=== PATIENT | male | born 1945 | race Caucasian/White ===

== ENCOUNTER 2017-01-31 16:34 | Inpatient (IN) | payer OTHER ==
[~2017-01-31 16:34] MED LIST: DUONEB 0.5 MG/3 MG NEB ONE
[2017-01-31 16:41] VITALS: BMI 31.6
[2017-01-31] MEDS ORDERED: TUSSIONEX PENNKINETIC SUSP PO PRN (16:56)
[2017-01-31] MEDS ORDERED: NS 1000 ML 1,000 ML IV ONE (16:58)
[2017-01-31] MEDS ORDERED: NS 1000 ML 1,000 ML ONE (17:00)
[2017-01-31] MEDS ORDERED: TYLENOL 325 MG TAB PO ONE (17:14)
--- NOTE | 2017-01-31 17:16 | DR.URIAD ---
HPI - Time Seen Time seen: 17:15 - PCP Primary Care Physician: KRIS LOPEZ - Complaint Chief Complaint:: PT C/O FLU LIKE SYMPTOMS , AND WEAK AND NO COUGH AND PT IS WEAK .. PT HAS AN INCREASED TEMP OFF AND ON AT HOME .. - Source History Provided: Patient - Mode of Arrival Mode of Arrival: Wheelchair - Timing Onset of Chief Complaint: 01/22/17 PMH - PMH Past Medical History: Yes Past Medical History: Hypertension Past Medical History Comment: AFIB, HX OF BRAIN BLEED. Past Surgical History: Yes Surgical History: Angioplasty/Stents - Family History History of Family Medical Conditions: Yes Family Medical History: Diabetes Mellitus, Cancer, Hypertension - Social History Does patient currently use any type of tobacco product: No Have you used tobacco products in the last 12 months: No Type of Tobacco Use: None Does any household member use tobacco: No Alcohol Use: None Do you use any recreational Drugs:: No Lives With: Family Lives Where: Home - infectious screening In the last 2 months have you had wt loss of >10#?: NO Have you had fever, night sweats or hemotysis?: No Have you traveled outside the country in the last 6 months?: No Isolation: Standard ROS - Review of Systems Eyes: No Symptoms Reported ENTM: No Symptoms Reported Respiratoy: No Symptoms Reported Cardiovascular: No Symptoms Reported Gastrointestinal/Abdominal: No Symptoms Reported Genitourinary: No Symptoms Reported Neurological: No Symptoms Reported Musculoskeletal: No Symptoms Reported Integumentary: No Symptoms Reported Hematologic/Lymphatic: No Symptoms Reported Endocrine: No Symptoms Reported Psychiatric: No Symptoms Reported All Other Systems: Reviewed and Negative PE - Vital Signs Vitals: Temperature 101.5 F Pulse Rate [Left Brachial] 93 Pulse Rate 96 Respiratory Rate 20 Blood Pressure [Left Arm] 156/74 Blood Pressure [Right Arm] 154/77 Blood Pressure 143/73 O2 Sat by Pulse Oximetry 98 - General General Appearance: Alert, In No Apparent Distress - Head Head Exam: Normal Inspection, Atraumatic - Eyes Eye exam: Normal Appearance, PERRL, EOMI - ENT ENT Exam: Normal Exam External Ear Exam: Normal External Inspection TM/Canal Exam: Bilateral Normal Nose Exam: Normal Nose Exam Nasal Speculum Exam: Bilateral Normal Mouth Exam: Normal Inspection Throat Exam: Normal Inspection - Neck Neck Exam: Normal Inspection, Full ROM - Chest Chest Inspection: Normal Inspection, Symmetric Chest Wall Rise - Respiratory Respiratory Exam: Normal Lung Sounds Bilat Respiratory Exam: Bilateral Clear to Auscultation - Cardiovascular Cardiovascular Exam: Regular Rate, Normal Rhythm - Abdominal Exam Abdominal Exam: Normal Inspection Abdominal Tenderness: negative: RUQ, RLQ, LUQ, LLQ, Epigastrium, Suprapubic, Diffuse, Mild, Moderate, Severe, Other - Extremeties Extremities Exam: Normal Inspection, Full ROM - Back Back Exam: Normal Inspection, Tenderness - Neurologic Neurological Exam: Alert, Oriented X3, CN II-XII Intact - Psychiatric Psychiatric Exam: Normal Affect - Skin Skin Exam: Warm, Dry, Intact ROR - Labs Reviewed Laboratory Results Reviewed?: Yes (UA: nitrite +,leukocyte esterase 3+,wbc 55-60 ) Result Diagrams: 01/31/17 17:05 01/31/17 17:05 Laboratory: 01/31/17 18:13 Sputum - Expectorated Sputum - Final WBC 12.9 X10^3/uL (3.6-10.0) H 01/31/17 17:05 RBC 4.30 X10^6/uL (4.7-6.0) L 01/31/17 17:05 Hgb 12.7 g/dL (13.5-18.0) L 01/31/17 17:05 Hct 37.2 % (42.0-54.0) L 01/31/17 17:05 MCV 86.6 fL (80.0-100.0) 01/31/17 17:05 MCH 29.5 pg (27.0-34.0) 01/31/17 17:05 MCHC 34.0 g/dL (33.0-35.0) 01/31/17 17:05 RDW 14.1 % (11.6-16.5) 01/31/17 17:05 Plt Count 74 X10^3/uL (150.0-450.0) L 01/31/17 17:05 Plt Count Comment Adequate (ADEQUATE) 01/31/17 17:05 MPV 9.6 fL (7.4-11.0) 01/31/17 17:05 Neut % 75.7 % (42.0-75.0) H 01/31/17 17:05 Lymph % 10.1 % (21.0-51.0) L 01/31/17 17:05 [place] % 13.8 % (0.0-13.0) H 01/31/17 17:05 Eos % 0.0 % (0.9-2.9) L 01/31/17 17:05 Baso % 0.4 % (0.2-1.0) 01/31/17 17:05 Neut # 9.7 x10^3/uL (2.2-4.8) H 01/31/17 17:05 Lymph # 1.3 X10^3/uL (1.3-2.9) 01/31/17 17:05 [place] # 1.8 x10^3/uL (0.3-0.8) H 01/31/17 17:05 Eos # 0.0 x10^3/uL (0.0-0.2) 01/31/17 17:05 Baso # 0.1 X10^3/uL (0.0-0.1) 01/31/17 17:05 Absolute Nucleated RBC 0.0 /100WBC 01/31/17 17:05 Plt Clumps, EDTA Few 01/31/17 17:05 Plt Morphology Comment Normal (NORMAL) 01/31/17 17:05 RBC Morphology Normal (NORMAL) 01/31/17 17:05 Hypochromasia Slight A 01/31/17 17:05 Sodium 137 mmol/L (136-145) 01/31/17 17:05 Corrected Sodium 139 mmol/L (136-145) 01/31/17 17:05 Potassium 3.5 mmol/L (3.5-5.1) 01/31/17 17:05 Chloride 103 mmol/L (98-107) 01/31/17 17:05 Carbon Dioxide 24.2 mmol/L (21-32) 01/31/17 17:05 BUN 29 mg/dL (7-18) H 01/31/17 17:05 Creatinine 1.62 mg/dL (0.70-1.30) H 01/31/17 17:05 Est GFR (MDRD) Af Amer 55 (>60) L 01/31/17 17:05 Est GFR (MDRD) Non-Af 45 (>60) L 01/31/17 17:05 Glucose 166 mg/dL (65-99) H 01/31/17 17:05 Calcium 8.6 mg/dL (8.5-10.1) 01/31/17 17:05 Corrected Calcium 9.8 mg/dL (8.5-10.1) 01/31/17 17:05 Total Bilirubin 0.90 mg/dL (0.2-1.0) 01/31/17 17:05 AST 30 Units/L (15-37) 01/31/17 17:05 ALT 19 Units/L (12-78) 01/31/17 17:05 Alkaline Phosphatase 64 Units/L (46-116) 01/31/17 17:05 Total Protein 7.5 g/dL (6.4-8.2) 01/31/17 17:05 Albumin 2.5 g/dL (3.4-5.0) L 01/31/17 17:05 Globulin 5.0 g/dL (2.5-4.5) H 01/31/17 17:05 Albumin/Globulin Ratio 0.5 Ratio (1.1-2.1) L 01/31/17 17:05 Specimen Type Clean catch urine 01/31/17 18:09 Urine Color Dark yellow (YELLOW) 01/31/17 18:09 Urine Appearance Slightly hazy (CLEAR) 01/31/17 18:09 Urine pH 5.0 (5.0 - 8.0) 01/31/17 18:09 Ur Specific [place] 1.015 (1.000-1.030) 01/31/17 18:09 Urine Protein 3+ (NEGATIVE) 01/31/17 18:09 Urine Glucose (UA) Negative (NEGATIVE) 01/31/17 18:09 Urine Ketones Negative (NEGATIVE) 01/31/17 18:09 Urine Occult Blood 4+ (NEGATIVE) 01/31/17 18:09 Urine Nitrite Positive (NEGATIVE) 01/31/17 18:09 Urine Bilirubin Negative (NEGATIVE) 01/31/17 18:09 Urine Urobilinogen Normal (NORMAL) 01/31/17 18:09 Ur Leukocyte Esterase 3+ (NEGATIVE) 01/31/17 18:09 Urine RBC 3-5 /HPF (NEGATIVE) 01/31/17 18:09 Urine WBC 55-60 /HPF (NEGATIVE) 01/31/17 18:09 Ur Squamous Epith Cells Rare /HPF (NEGATIVE) 01/31/17 18:09 Urine Bacteria 3+ /HPF (NEGATIVE) 01/31/17 18:09 Ur Culture Indicated? Yes/culture set up 01/31/17 18:09 Influenza Type A (PCR) Negative (NEGATIVE) 01/31/17 17:53 Influenza Type B (PCR) Negative (NEGATIVE) 01/31/17 17:53 - XRAY XRAY Interpreted by: Radiologist (Chest: Stable cardiomegaly; basilar intersitiial prominence may reflect crowding related to decreased depth of inspiration, although mild edema or atypical infection are not excluded. Addendum: Repeat AP view of the chest was performed, demonstrating unchanged cardiomegaly,decreased depth of inspiration and interstitial prominence at the bases. Overall, the examination is stable, with differential of mild edema or atypical infection are not excluded.) - Diagnosis Discharge Problem: Pyelonephritis - Discharge Plan Condition: Stable - Follow ups/Referrals Follow ups/Referrals: NFD,None [Primary Care Provider] - 3 days - Instructions
[2017-01-31 17:17] LABS: HEMOGLOBIN 12.7 g/dL (13.5-18.0); MONOCYTES # (AUTO) 1.8 x10^3/uL (0.3-0.8); RED CELL DISTRIBUTION WIDTH 14.1 % (11.6-16.5)
[2017-01-31] MEDS ORDERED: TYLENOL 500 MG TAB EXTRA STRENGTH PO ONE ×2 (17:20→17:26)
--- NOTE | 2017-01-31 17:31 | RAD ---
Chest, one view Indication: Flu-like symptoms. Weakness. Comparison: 01/20/2016 Findings: Mild cardiac silhouette enlargement is unchanged. There is decreased depth of inspiration w ith interstitial thickening most prominent at the bases. No dense infiltrate or large effusion is chandan ntified. Impression: Stable cardiomegaly. Basilar interstitial prominence may reflect crowding related to decreased depth of inspiration, altho ugh mild edema or atypical infection are not excluded. Correlation recommended. Reported By:
[2017-01-31] MEDS ORDERED: LASIX PO PRN (17:33)
[2017-01-31 17:36] LABS: BASOPHILS # (AUTO) 0.1 X10^3/uL (0.0-0.1); BASOPHILS % (AUTO) 0.4 % (0.2-1.0); HEMATOCRIT 37.2 % (42.0-54.0); LYMPHOCYTES # (AUTO) 1.3 X10^3/uL (1.3-2.9); LYMPHOCYTES % (AUTO) 10.1 % (21.0-51.0); MEAN CORPUSCULAR HEMOGLOBIN 29.5 pg (27.0-34.0); MEAN CORPUSCULAR VOLUME 86.6 fL (80.0-100.0); MEAN PLATELET VOLUME 9.6 fL (7.4-11.0); MONOCYTES % (AUTO) 13.8 % (0.0-13.0); NEUTROPHILS # (AUTO) 9.7 x10^3/uL (2.2-4.8); NEUTROPHILS % (AUTO) 75.7 % (42.0-75.0); PLATELET COUNT 74 X10^3/uL (150.0-450.0); WHITE BLOOD COUNT 12.9 X10^3/uL (3.6-10.0)
[2017-01-31 17:38] LABS: PLATELET MORPHOLOGY COMMENT NORMAL (NORMAL)
[2017-01-31 17:39] LABS: HYPOCHROMASIA SLIGHT
[2017-01-31 17:40] LABS: ALBUMIN 2.5 g/dL (3.4-5.0); CALCIUM 8.6 mg/dL (8.5-10.1); CARBON DIOXIDE 24.2 mmol/L (21-32); COR CA(FOR HYPOALB) 9.8 mg/dL (8.5-10.1); CREATININE 1.62 mg/dL (0.70-1.30); TOTAL PROTEIN 7.5 g/dL (6.4-8.2)
[2017-01-31] MEDS ORDERED: DUONEB 0.5 MG/3 MG ONE (18:05)
[2017-01-31 18:19] LABS: BILIRUBIN,URINE NEGATIVE (NEGATIVE); BLOOD/HEMOGLOBIN,URINE 4+ (NEGATIVE); GLUCOSE, URINE NEGATIVE (NEGATIVE); KETONES,URINE NEGATIVE (NEGATIVE); LEUKOCYTE ESTERASE ,URINE 3+ (NEGATIVE); NITRITES,URINE POSITIVE (NEGATIVE); PROTEIN,URINE 3+ (NEGATIVE); UROBILINOGEN,URINE NORMAL (NORMAL)
[2017-01-31 18:31] LABS: APPEARANCE,URINE SLIGHTLY HAZY (CLEAR); COLOR,URINE DARK YELLOW (YELLOW)
[2017-01-31 18:32] LABS: BACTERIA,URINE 3+ /HPF (NEGATIVE); SQUAMOUS EPITHELIAL CELL,UR RARE /HPF (NEGATIVE)
[2017-01-31] MEDS ORDERED: CIPRO IV 400 MG PREMIX* 400 MG/200 ML IV.SOLN. IV ONE ×2 (18:56→18:57)
[2017-01-31] MEDS ORDERED: NS 1/2 1000 ML IV 1,000 ML IV ONE (18:58)
[2017-01-31] MEDS: NS 1/2 1000 ML IV 1,000 ML IV SCH (19:04)
[2017-01-31] MEDS ORDERED: PHENERGAN INJ 25 MG IV PRN (19:43)
[2017-01-31] MEDS ORDERED: PATIENT'S HOME MEDICATION (Atorvastatin Calcium [Atorvastatin Calcium] 1 TAB) PO SCH (21:00)
[2017-01-31] MEDS ORDERED: FLUVIRIN IM ONE (21:20)
[2017-01-31] MEDS: NEURONTIN CAP 100 MG PO SCH (21:35)
[2017-01-31] MEDS: COREG TAB 6.25 MG PO SCH (21:35)
[2017-01-31] MEDS: LIPITOR TAB 40 MG PO SCH (21:35)
[2017-01-31] MEDS: ROBITUSSIN DM PO SCH (21:36)
[2017-01-31] MEDS: DUONEB 0.5 MG/3 MG NEB SCH (21:54)
[2017-02-01] MEDS: DUONEB 0.5 MG/3 MG NEB SCH ×6 (00:55→20:50)
[2017-02-01 04:11] LABS: STOOL FOR WBC NEGATIVE (NEGATIVE)
[2017-02-01 04:15] LABS: CRYPTOSPORIDIUM PARVUM ANTIGEN NEGATIVE (NEGATIVE); GIARDIA LAMBLIA ANTIGEN POSITIVE (NEGATIVE)
[2017-02-01 04:50] LABS: ALANINE AMINOTRANSFERASE 25 Units/L (12-78); ALBUMIN 2.3 g/dL (3.4-5.0); ALKALINE PHOSPHATASE 61 Units/L (46-116); ASPARTATE AMINO TRANSFERASE 33 Units/L (15-37); BLOOD UREA NITROGEN 25 mg/dL (7-18); CALCIUM 8.4 mg/dL (8.5-10.1); CARBON DIOXIDE 23.2 mmol/L (21-32); CHLORIDE 104 mmol/L (98-107); COR CA(FOR HYPOALB) 9.8 mg/dL (8.5-10.1); COR NA(FOR HYPERGLY) 139 mmol/L (136-145); CREATININE 1.45 mg/dL (0.70-1.30); SODIUM 138 mmol/L (136-145); TOTAL PROTEIN 6.9 g/dL (6.4-8.2); eGFR BLACK RACES > 60 (>60); eGFR NON BLACK RACES 51 (>60)
[2017-02-01 04:53] LABS: BASOPHILS % (AUTO) 0.1 % (0.2-1.0); EOSINOPHILS % (AUTO) 0.2 % (0.9-2.9); HEMATOCRIT 36.1 % (42.0-54.0); HEMOGLOBIN 12.5 g/dL (13.5-18.0); LYMPHOCYTES # (AUTO) 0.8 X10^3/uL (1.3-2.9); LYMPHOCYTES % (AUTO) 9.1 % (21.0-51.0); MEAN CORPUSCULAR HEMOGLOBIN 29.7 pg (27.0-34.0); MEAN CORPUSCULAR HGB CONC 34.5 g/dL (33.0-35.0); MEAN CORPUSCULAR VOLUME 86.3 fL (80.0-100.0); MEAN PLATELET VOLUME 9.3 fL (7.4-11.0); MONOCYTES # (AUTO) 1.3 x10^3/uL (0.3-0.8); NEUTROPHILS # (AUTO) 6.7 x10^3/uL (2.2-4.8); NEUTROPHILS % (AUTO) 75.6 % (42.0-75.0); PLATELET COUNT 73 X10^3/uL (150.0-450.0); RED BLOOD COUNT 4.19 X10^6/uL (4.7-6.0); RED CELL DISTRIBUTION WIDTH 14.1 % (11.6-16.5)
[2017-02-01] MEDS ORDERED: MAGNESIUM SULFATE 1 GM/100 mL PREMIX 1 GM/100 ML BAG IV PRN (05:06)
[2017-02-01] MEDS ORDERED: K-RIDER 10 MEQ/NS 100 ML 10 MEQ/100 ML BAG IV PRN (05:06)
[2017-02-01] MEDS ORDERED: POTASSIUM CHL 60 MEQ/NS 0.45% 500 ML IV PRN (05:06)
[2017-02-01] MEDS ORDERED: K-LYTE EFFERVESCENT PO PRN (05:06)
[2017-02-01] MEDS ORDERED: MAG-OX TAB PO PRN (05:06)
[2017-02-01] MEDS ORDERED: POTASSIUM CHL 40 MEQ/NS 0.45% 500 ML IV PRN (05:06)
[2017-02-01] MEDS ORDERED: POTASSIUM CHLORIDE LIQ 20 MEQ UDC PO PRN (05:06)
[2017-02-01 05:16] LABS: PLATELET MORPHOLOGY COMMENT NORMAL (NORMAL); WHITE BLOOD COUNT 8.9 X10^3/uL (3.6-10.0)
[2017-02-01] MEDS ORDERED: K-LYTE EFFERVESCENT PO ONE (06:00)
[2017-02-01] MEDS ORDERED: FLUVIRIN IM ONE (06:41)
[2017-02-01] MEDS: NORCO 5/325 MG TAB PO PRN ×2 (07:08→21:06)
[2017-02-01] MEDS: NEURONTIN CAP 100 MG PO SCH ×3 (07:08→21:06)
[2017-02-01] MEDS ORDERED: NS 1/2 1000 ML IV 1,000 ML IV ONE (07:54)
[2017-02-01] MEDS: ROBITUSSIN DM PO SCH ×5 (07:59→21:08)
[2017-02-01] MEDS: NS 1/2 1000 ML IV 1,000 ML IV SCH (08:00)
[2017-02-01] MEDS: DIOVAN TAB 160 MG PO SCH (08:47)
[2017-02-01] MEDS: LASIX PO SCH (08:47)
[2017-02-01] MEDS: HYDROCHLOROTHIAZIDE 25 MG TAB PO SCH ×2 (08:48→08:50)
[2017-02-01] MEDS: COREG TAB 6.25 MG PO SCH ×2 (08:48→21:06)
[2017-02-01] MEDS: FLOMAX PO SCH (08:48)
[2017-02-01] MEDS ORDERED: VALSARTAN PO SCH (09:00)
[2017-02-01] MEDS: CIPRO IV 400 MG PREMIX* 400 MG/200 ML IV.SOLN. IV SCH ×2 (10:37→21:08)
--- NOTE | 2017-02-01 13:02 | CT ---
CT OF THE ABDOMEN AND PELVIS WITH CONTRAST HISTORY: Pyelonephritis Comparison: 01/18/2016 Technique: Multiple axial images of the abdomen and pelvis were obtained from the lung bases to the pubic symphy sis follow the administration of IV contrast as well as oral contrast. Dose reduction techniques inc luding Automated Exposure Control (AEC) and adjustment of mA and kV were utlized. Findings: The heart is normal in size. There is no pericardial effusion. Lung bases are clear without focal con solidation, pleural effusion or pneumothorax. Liver and spleen are normal in size, enhancement characteristics and contour. No focal lesions. The p ortal vein is patent. No ductal dilitation. Gallbladder is present. No calcified gallstones or gallbl adder wall thickening. The pancreas is unremarkable. Adrenal glands are normal. Redemonstrated is a m ulti-cystic and poorly defined cystic mass in the right kidney measuring 8.5 x 7.1 x 9.5 cm, previous ly 7.4 x 6.6 x 8.3 cm. There is inflammatory change surrounding the right kidney and involving the p erinephric fascia. Stranding extends along the course of the right ureter to the level of the pelvic inlet. No evidence of ureteral obstruction. It should be noted the cystic structures cannot be defini tively connected to the right renal collecting system. There is also mild prominence involving the le ft-sided collecting system best seen on series 4 between images 36 and 42 No bowel obstruction or inflammation. Normal appendix. Diverticulosis with diverticulitis. Bambi mese nteric appearance is present and similar to prior. No free fluid or fluid collections. The bladder is normal in appearance. Prostate enlarged. Bilateral fat containing inguinal hernias. No free fluid or abnormal pelvic lymph nodes. No aggressive osseous lesions. IMPRESSION: 1. Similar appearance of multilocular cystic lesion involving the upper pole of the right kidney wit h thick enhancing septa. As this cannot be completely and definitively connected to the collecting sy stem, the differential considerations include chronic renal abscess, obstructed upper pole calyx with superinfection or possibly cystic renal neoplasm. The latter is disfavored given its stable to decre ased size since 01/18/2016 . Overall these findings are essentially unchanged from prior. 2. Prominence of the proximal left collecting system which may also represent infection in the correc t clinical setting. No obstructing mass or lesion can be seen on this examination. Reported By:
[2017-02-01] MEDS: FLAGYL IV PREMIX 500 MG BAG 500 MG/100 ML BAG IV SCH ×2 (13:59→21:08)
[2017-02-01] MEDS: TYLENOL 325 MG TAB PO PRN (15:22)
[2017-02-01] MEDS: NS 1/2 + KCL 20 MEQ/L 1,000 ML IV SCH (15:23)
--- NOTE | 2017-02-01 19:03 | DR.UPDATE ---
H&P Update History and Physical Update: History and Physical reviewed and patient examined. SEE SCANNED H & P, UPDATE ON 01/31/2017 Changes noted: NO
[2017-02-01] MEDS: LIPITOR TAB 40 MG PO SCH (21:06)
[2017-02-01] MEDS: MORPHINE SULFATE INJ 2 MG INJ IVP PRN (22:59)
[2017-02-02] MEDS: DUONEB 0.5 MG/3 MG NEB SCH ×6 (00:55→21:28)
[2017-02-02] MEDS: NS 1/2 + KCL 20 MEQ/L 1,000 ML IV SCH ×4 (01:08→21:03)
[2017-02-02] MEDS: FLAGYL IV PREMIX 500 MG BAG 500 MG/100 ML BAG IV SCH ×2 (03:14→08:14)
[2017-02-02] MEDS: MORPHINE SULFATE INJ 2 MG INJ IVP PRN ×3 (05:26→23:46)
[2017-02-02] MEDS: NEURONTIN CAP 100 MG PO SCH ×3 (05:26→21:03)
[2017-02-02 06:09] LABS: BASOPHILS % (AUTO) 0.1 % (0.2-1.0); EOSINOPHILS # (AUTO) 0.1 x10^3/uL (0.0-0.2); EOSINOPHILS % (AUTO) 0.8 % (0.9-2.9); HEMATOCRIT 34.4 % (42.0-54.0); HEMOGLOBIN 11.6 g/dL (13.5-18.0); LYMPHOCYTES # (AUTO) 1.2 X10^3/uL (1.3-2.9); LYMPHOCYTES % (AUTO) 13.1 % (21.0-51.0); MEAN CORPUSCULAR HEMOGLOBIN 28.9 pg (27.0-34.0); MEAN CORPUSCULAR HGB CONC 33.8 g/dL (33.0-35.0); MEAN CORPUSCULAR VOLUME 85.5 fL (80.0-100.0); MONOCYTES # (AUTO) 1.6 x10^3/uL (0.3-0.8); MONOCYTES % (AUTO) 17.7 % (0.0-13.0); NEUTROPHILS % (AUTO) 68.3 % (42.0-75.0); PLATELET COUNT 67 X10^3/uL (150.0-450.0); RED BLOOD COUNT 4.02 X10^6/uL (4.7-6.0); RED CELL DISTRIBUTION WIDTH 14.1 % (11.6-16.5); WHITE BLOOD COUNT 8.8 X10^3/uL (3.6-10.0)
[2017-02-02 06:26] LABS: ALBUMIN 2.1 g/dL (3.4-5.0); CALCIUM 8.1 mg/dL (8.5-10.1); CARBON DIOXIDE 24.2 mmol/L (21-32); COR CA(FOR HYPOALB) 9.6 mg/dL (8.5-10.1); CREATININE 1.56 mg/dL (0.70-1.30); TOTAL PROTEIN 6.7 g/dL (6.4-8.2)
[2017-02-02 07:12] LABS: PLATELET MORPHOLOGY COMMENT NORMAL (NORMAL)
[2017-02-02] MEDS: TYLENOL 325 MG TAB PO PRN ×2 (07:15→16:12)
[2017-02-02] MEDS: CIPRO IV 400 MG PREMIX* 400 MG/200 ML IV.SOLN. IV SCH ×2 (08:13→21:02)
[2017-02-02] MEDS: DIOVAN TAB 160 MG PO SCH (08:14)
[2017-02-02] MEDS: COREG TAB 6.25 MG PO SCH ×2 (08:14→21:03)
[2017-02-02] MEDS: LASIX PO SCH (08:15)
[2017-02-02] MEDS: FLOMAX PO SCH (08:15)
[2017-02-02] MEDS: HYDROCHLOROTHIAZIDE 25 MG TAB PO SCH (08:15)
[2017-02-02] MEDS: ROBITUSSIN DM PO SCH ×4 (08:16→21:02)
[2017-02-02] MEDS ORDERED: DUONEB 0.5 MG/3 MG ONE (12:48)
[2017-02-02] MEDS: FLAGYL TAB 500 MG PO SCH ×2 (14:27→21:03)
[2017-02-02] MEDS: LIPITOR TAB 40 MG PO SCH (21:02)
[2017-02-03] MEDS: DUONEB 0.5 MG/3 MG NEB SCH ×6 (01:24→21:50)
[2017-02-03] MEDS: TYLENOL 325 MG TAB PO PRN ×2 (03:50→12:00)
[2017-02-03 04:59] LABS: BASOPHILS % (AUTO) 0.4 % (0.2-1.0); EOSINOPHILS # (AUTO) 0.1 x10^3/uL (0.0-0.2); EOSINOPHILS % (AUTO) 1.6 % (0.9-2.9); HEMATOCRIT 36.3 % (42.0-54.0); HEMOGLOBIN 12.4 g/dL (13.5-18.0); LYMPHOCYTES # (AUTO) 0.9 X10^3/uL (1.3-2.9); MEAN CORPUSCULAR HEMOGLOBIN 29.5 pg (27.0-34.0); MEAN CORPUSCULAR HGB CONC 34.2 g/dL (33.0-35.0); MEAN CORPUSCULAR VOLUME 86.1 fL (80.0-100.0); MEAN PLATELET VOLUME 9.5 fL (7.4-11.0); MONOCYTES # (AUTO) 1.6 x10^3/uL (0.3-0.8); MONOCYTES % (AUTO) 19.2 % (0.0-13.0); NEUTROPHILS # (AUTO) 5.5 x10^3/uL (2.2-4.8); NEUTROPHILS % (AUTO) 67.8 % (42.0-75.0); PLATELET COUNT 50 X10^3/uL (150.0-450.0); RED BLOOD COUNT 4.21 X10^6/uL (4.7-6.0); RED CELL DISTRIBUTION WIDTH 14.6 % (11.6-16.5)
[2017-02-03 05:29] LABS: PLATELET MORPHOLOGY COMMENT NORMAL (NORMAL); WHITE BLOOD COUNT 8.1 X10^3/uL (3.6-10.0)
[2017-02-03] MEDS: FLAGYL TAB 500 MG PO SCH ×3 (05:46→22:00)
[2017-02-03] MEDS: NEURONTIN CAP 100 MG PO SCH ×3 (05:47→22:00)
[2017-02-03 06:16] LABS: ALANINE AMINOTRANSFERASE 18 Units/L (12-78); ALBUMIN 3.6 g/dL (3.4-5.0); ALKALINE PHOSPHATASE 68 Units/L (46-116); ASPARTATE AMINO TRANSFERASE 24 Units/L (15-37); BLOOD UREA NITROGEN 9 mg/dL (7-18); CALCIUM 8.3 mg/dL (8.5-10.1); CARBON DIOXIDE 20.8 mmol/L (21-32); CHLORIDE 102 mmol/L (98-107); CREATININE 0.77 mg/dL (0.70-1.30); SODIUM 138 mmol/L (136-145); TOTAL PROTEIN 6.9 g/dL (6.4-8.2); eGFR BLACK RACES > 60 (>60); eGFR NON BLACK RACES > 60 (>60)
[2017-02-03] MEDS: COREG TAB 6.25 MG PO SCH ×2 (08:06→21:58)
[2017-02-03] MEDS: CIPRO IV 400 MG PREMIX* 400 MG/200 ML IV.SOLN. IV SCH ×2 (08:06→21:58)
[2017-02-03] MEDS: FLOMAX PO SCH (08:07)
[2017-02-03] MEDS: DIOVAN TAB 160 MG PO SCH (08:07)
[2017-02-03] MEDS: LASIX PO SCH (08:07)
[2017-02-03] MEDS: HYDROCHLOROTHIAZIDE 25 MG TAB PO SCH (08:07)
[2017-02-03] MEDS: NS 1/2 + KCL 20 MEQ/L 1,000 ML IV SCH ×2 (08:08→21:59)
[2017-02-03] MEDS: ROBITUSSIN DM PO SCH ×4 (08:08→22:00)
[2017-02-03] MEDS: KEPPRA TAB 500 MG PO SCH ×2 (13:50→21:58)
[2017-02-03] MEDS: TOPROL XL PO SCH (13:50)
[2017-02-03] MEDS: NORCO 5/325 MG TAB PO PRN (14:33)
[2017-02-03] MEDS: LIPITOR TAB 40 MG PO SCH (21:59)
[2017-02-03] MEDS: MORPHINE SULFATE INJ 2 MG INJ IVP PRN (22:43)
[2017-02-04] MEDS: DUONEB 0.5 MG/3 MG NEB SCH ×6 (00:57→21:57)
[2017-02-04 05:29] LABS: BASOPHILS # (AUTO) 0.1 X10^3/uL (0.0-0.1); BASOPHILS % (AUTO) 0.6 % (0.2-1.0); EOSINOPHILS # (AUTO) 0.1 x10^3/uL (0.0-0.2); EOSINOPHILS % (AUTO) 1.7 % (0.9-2.9); HEMATOCRIT 34.2 % (42.0-54.0); HEMOGLOBIN 11.6 g/dL (13.5-18.0); LYMPHOCYTES # (AUTO) 1.3 X10^3/uL (1.3-2.9); LYMPHOCYTES % (AUTO) 15.7 % (21.0-51.0); MEAN CORPUSCULAR HEMOGLOBIN 29.1 pg (27.0-34.0); MEAN CORPUSCULAR HGB CONC 33.8 g/dL (33.0-35.0); MEAN PLATELET VOLUME 8.8 fL (7.4-11.0); MONOCYTES # (AUTO) 1.6 x10^3/uL (0.3-0.8); NEUTROPHILS # (AUTO) 5.2 x10^3/uL (2.2-4.8); PLATELET COUNT 64 X10^3/uL (150.0-450.0); RED BLOOD COUNT 3.98 X10^6/uL (4.7-6.0); RED CELL DISTRIBUTION WIDTH 14.5 % (11.6-16.5); WHITE BLOOD COUNT 8.3 X10^3/uL (3.6-10.0)
[2017-02-04 05:58] LABS: ALANINE AMINOTRANSFERASE 41 Units/L (12-78); ALKALINE PHOSPHATASE 70 Units/L (46-116); ASPARTATE AMINO TRANSFERASE 52 Units/L (15-37); BLOOD UREA NITROGEN 17 mg/dL (7-18); CARBON DIOXIDE 23.2 mmol/L (21-32); CHLORIDE 101 mmol/L (98-107); COR CA(FOR HYPOALB) 9.6 mg/dL (8.5-10.1); CREATININE 1.39 mg/dL (0.70-1.30); SODIUM 136 mmol/L (136-145); TOTAL PROTEIN 6.6 g/dL (6.4-8.2); eGFR BLACK RACES > 60 (>60); eGFR NON BLACK RACES 54 (>60)
[2017-02-04 06:52] LABS: PLATELET MORPHOLOGY COMMENT NORMAL (NORMAL)
[2017-02-04] MEDS: FLAGYL TAB 500 MG PO SCH ×3 (07:08→21:00)
[2017-02-04] MEDS: NEURONTIN CAP 100 MG PO SCH ×3 (07:09→21:00)
[2017-02-04] MEDS: NORCO 5/325 MG TAB PO PRN (08:06)
[2017-02-04] MEDS: CIPRO IV 400 MG PREMIX* 400 MG/200 ML IV.SOLN. IV SCH ×2 (09:24→21:00)
[2017-02-04] MEDS: FLOMAX PO SCH (09:25)
[2017-02-04] MEDS: LASIX PO SCH (09:25)
[2017-02-04] MEDS: DIOVAN TAB 160 MG PO SCH (09:25)
[2017-02-04] MEDS: TOPROL XL PO SCH (09:25)
[2017-02-04] MEDS: COREG TAB 6.25 MG PO SCH ×2 (09:25→21:00)
[2017-02-04] MEDS: KEPPRA TAB 500 MG PO SCH ×2 (09:25→21:00)
[2017-02-04] MEDS: HYDROCHLOROTHIAZIDE 25 MG TAB PO SCH (09:26)
[2017-02-04] MEDS: ROBITUSSIN DM PO SCH ×4 (09:26→21:00)
[2017-02-04] MEDS: NS 1/2 + KCL 20 MEQ/L 1,000 ML IV SCH (09:27)
[2017-02-04] MEDS: LIPITOR TAB 40 MG PO SCH (21:00)
[2017-02-04] MEDS ORDERED: CIPRO IV 400 MG PREMIX* 400 MG/200 ML IV.SOLN. IV ONE (21:03)
[2017-02-05] MEDS: DUONEB 0.5 MG/3 MG NEB SCH ×6 (01:15→21:00)
[2017-02-05] MEDS: FLAGYL TAB 500 MG PO SCH ×3 (05:09→21:22)
[2017-02-05] MEDS: NEURONTIN CAP 100 MG PO SCH ×3 (05:09→21:14)
[2017-02-05] MEDS: NS 1/2 + KCL 20 MEQ/L 1,000 ML IV SCH ×2 (06:03→09:47)
[2017-02-05 06:30] LABS: BASOPHILS % (AUTO) 0.3 % (0.2-1.0); EOSINOPHILS # (AUTO) 0.2 x10^3/uL (0.0-0.2); EOSINOPHILS % (AUTO) 2.9 % (0.9-2.9); HEMATOCRIT 35.6 % (42.0-54.0); HEMOGLOBIN 12.1 g/dL (13.5-18.0); LYMPHOCYTES # (AUTO) 1.5 X10^3/uL (1.3-2.9); LYMPHOCYTES % (AUTO) 18.7 % (21.0-51.0); MEAN CORPUSCULAR HEMOGLOBIN 29.3 pg (27.0-34.0); MEAN CORPUSCULAR VOLUME 86.1 fL (80.0-100.0); MEAN PLATELET VOLUME 8.5 fL (7.4-11.0); MONOCYTES # (AUTO) 1.5 x10^3/uL (0.3-0.8); MONOCYTES % (AUTO) 17.8 % (0.0-13.0); NEUTROPHILS # (AUTO) 4.9 x10^3/uL (2.2-4.8); NEUTROPHILS % (AUTO) 60.3 % (42.0-75.0); PLATELET COUNT 72 X10^3/uL (150.0-450.0); RED BLOOD COUNT 4.13 X10^6/uL (4.7-6.0); RED CELL DISTRIBUTION WIDTH 14.6 % (11.6-16.5); WHITE BLOOD COUNT 8.2 X10^3/uL (3.6-10.0)
[2017-02-05 06:51] LABS: ALANINE AMINOTRANSFERASE 45 Units/L (12-78); ALBUMIN 2.1 g/dL (3.4-5.0); ALKALINE PHOSPHATASE 66 Units/L (46-116); ASPARTATE AMINO TRANSFERASE 52 Units/L (15-37); BLOOD UREA NITROGEN 17 mg/dL (7-18); CALCIUM 8.2 mg/dL (8.5-10.1); CARBON DIOXIDE 25.7 mmol/L (21-32); CHLORIDE 102 mmol/L (98-107); COR CA(FOR HYPOALB) 9.7 mg/dL (8.5-10.1); CREATININE 1.34 mg/dL (0.70-1.30); SODIUM 137 mmol/L (136-145); eGFR BLACK RACES > 60 (>60); eGFR NON BLACK RACES 56 (>60)
[2017-02-05 06:56] LABS: BAND NEUTROPHILS % 1 % (0-10)
[2017-02-05 06:57] LABS: PLATELET MORPHOLOGY COMMENT NORMAL (NORMAL)
--- NOTE | 2017-02-05 07:20 | RAD ---
Slight residual Examination: Chest, PA and lateral views History: Pneumonia Comparison reference 01/31/2017. Findings: Continued normal heart size. Improved aeration of the lungs. With slight residual infiltrat e or atelectasis suspected in the left lower lobe. There is no new abnormality noted. Pulmonary vesse ls are now normal. Impression: Interval improvement, slight residuum left base. Reported By:
[2017-02-05] MEDS: CIPRO IV 400 MG PREMIX* 400 MG/200 ML IV.SOLN. IV SCH ×2 (09:44→21:23)
[2017-02-05] MEDS: COREG TAB 6.25 MG PO SCH ×2 (09:44→21:23)
[2017-02-05] MEDS: ROBITUSSIN DM PO SCH ×5 (09:44→21:22)
[2017-02-05] MEDS: HYDROCHLOROTHIAZIDE 25 MG TAB PO SCH (09:46)
[2017-02-05] MEDS: KEPPRA TAB 500 MG PO SCH ×2 (09:46→21:22)
[2017-02-05] MEDS: FLOMAX PO SCH (09:46)
[2017-02-05] MEDS: DIOVAN TAB 160 MG PO SCH (09:46)
[2017-02-05] MEDS: TOPROL XL PO SCH (09:47)
[2017-02-05] MEDS: LASIX PO SCH (09:47)
[2017-02-05] MEDS: SOLU-Medrol 40 MG VIAL IVP SCH ×3 (13:45→21:23)
[2017-02-05] MEDS: LIPITOR TAB 40 MG PO SCH (21:22)
[2017-02-06] MEDS: DUONEB 0.5 MG/3 MG NEB SCH ×3 (00:25→09:00)
[2017-02-06] MEDS: NS 1/2 + KCL 20 MEQ/L 1,000 ML IV SCH (01:14)
[2017-02-06] MEDS: NEURONTIN CAP 100 MG PO SCH (05:44)
[2017-02-06] MEDS: FLAGYL TAB 500 MG PO SCH (05:44)
[2017-02-06 06:02] LABS: BASOPHILS % (AUTO) 0.4 % (0.2-1.0); HEMATOCRIT 38.3 % (42.0-54.0); LYMPHOCYTES # (AUTO) 0.7 X10^3/uL (1.3-2.9); MEAN CORPUSCULAR HGB CONC 33.9 g/dL (33.0-35.0); MEAN CORPUSCULAR VOLUME 85.8 fL (80.0-100.0); MEAN PLATELET VOLUME 11.1 fL (7.4-11.0); MONOCYTES # (AUTO) 0.3 x10^3/uL (0.3-0.8); MONOCYTES % (AUTO) 3.7 % (0.0-13.0); NEUTROPHILS # (AUTO) 6.3 x10^3/uL (2.2-4.8); NEUTROPHILS % (AUTO) 86.9 % (42.0-75.0); PLATELET COUNT 142 X10^3/uL (150.0-450.0); RED BLOOD COUNT 4.47 X10^6/uL (4.7-6.0); RED CELL DISTRIBUTION WIDTH 14.5 % (11.6-16.5); WHITE BLOOD COUNT 7.2 X10^3/uL (3.6-10.0)
[2017-02-06 06:20] LABS: PLATELET MORPHOLOGY COMMENT NORMAL (NORMAL)
[2017-02-06 06:55] LABS: ALANINE AMINOTRANSFERASE 39 Units/L (12-78); ALBUMIN 2.2 g/dL (3.4-5.0); ALKALINE PHOSPHATASE 68 Units/L (46-116); ASPARTATE AMINO TRANSFERASE 39 Units/L (15-37); BLOOD UREA NITROGEN 20 mg/dL (7-18); CALCIUM 8.5 mg/dL (8.5-10.1); CARBON DIOXIDE 22.9 mmol/L (21-32); CHLORIDE 99 mmol/L (98-107); COR CA(FOR HYPOALB) 9.9 mg/dL (8.5-10.1); COR NA(FOR HYPERGLY) 136 mmol/L (136-145); CREATININE 1.25 mg/dL (0.70-1.30); SODIUM 133 mmol/L (136-145); TOTAL PROTEIN 7.4 g/dL (6.4-8.2); eGFR BLACK RACES > 60 (>60); eGFR NON BLACK RACES > 60 (>60)
[2017-02-06 08:07] VITALS: BP 170/80
[2017-02-06] MEDS: CIPRO IV 400 MG PREMIX* 400 MG/200 ML IV.SOLN. IV SCH (08:40)
[2017-02-06] MEDS: COREG TAB 6.25 MG PO SCH (08:40)
[2017-02-06] MEDS: DIOVAN TAB 160 MG PO SCH (08:41)
[2017-02-06] MEDS: HYDROCHLOROTHIAZIDE 25 MG TAB PO SCH (08:42)
[2017-02-06] MEDS: FLOMAX PO SCH (08:42)
[2017-02-06] MEDS: ROBITUSSIN DM PO SCH ×2 (08:43→08:48)
[2017-02-06] MEDS: KEPPRA TAB 500 MG PO SCH (08:43)
[2017-02-06] MEDS: LASIX PO SCH ×2 (08:43→08:48)
[2017-02-06] MEDS: TOPROL XL PO SCH (08:43)
[2017-02-06] MEDS ORDERED: FLUVIRIN IM ONE (11:28)
[2017-02-06] MEDS ORDERED: FLAGYL TAB 500 MG PO ONE (11:28)
[2017-02-06] MEDS ORDERED: CIPRO TAB 500 MG PO ONE ×2 (11:28→11:33)
== END 2017-02-06 11:45 | disposition home or self-care (01) | DRG 690 ==
LOC: ER 16:47 → OBS 19:41
PROVIDERS: ADMIT Emergency Medicine; ATTEND Internal Medicine
PROC: 3E0234Z Introduction of Serum, Toxoid and Vaccine into Muscle, Percutaneous Approach (ICD-10-PCS; principal; 2017-02-01)
PROC: 3E0234Z Introduction of Serum, Toxoid and Vaccine into Muscle, Percutaneous Approach (ICD-10-PCS; 2017-02-06)
DX: N10 Acute pyelonephritis (principal); I48.91 Unspecified atrial fibrillation; R10.84 Generalized abdominal pain; I10 Essential (primary) hypertension; B96.1 Klebsiella pneumoniae [K. pneumoniae] as the cause of diseases classified elsewhere; B96.89 Other specified bacterial agents as the cause of diseases classified elsewhere; Z23 Encounter for immunization
CPT/HCPCS: 36415; 71010; 71020; 74177; 80053; 81001; 82270; 83630; 83735; 85025; 87040; 87045; 87070; 87086; 87088; 87186; 87205; 87328; 87329; 87336; 87427; 87493; 87502; 87899; 90686; 94640; 94760; 96365; 96367; 96374; 99284; A4222; J7030; S0030; J0744; J2270; J2920; J7620

== ENCOUNTER 2018-05-17 08:46 | Inpatient (IN) ==
[2018-05-17] MEDS ORDERED: NS 500 ML IV 500 ML IV ONE (12:02)
[2018-05-17 12:54] LABS: BASOPHILS % (AUTO) 0.3 % (0.2-1.0); EOSINOPHILS # (AUTO) 0.1 x10^3/uL (0.0-0.2); EOSINOPHILS % (AUTO) 0.7 % (0.9-2.9); HEMATOCRIT 49.7 % (42.0-54.0); HEMOGLOBIN 16.8 g/dL (13.5-18.0); LYMPHOCYTES # (AUTO) 0.5 X10^3/uL (1.3-2.9); LYMPHOCYTES % (AUTO) 5.6 % (21.0-51.0); MEAN CORPUSCULAR HEMOGLOBIN 29.5 pg (27.0-34.0); MEAN CORPUSCULAR HGB CONC 33.8 g/dL (33.0-35.0); MEAN CORPUSCULAR VOLUME 87.2 fL (80.0-100.0); MEAN PLATELET VOLUME 8.4 fL (7.4-11.0); MONOCYTES % (AUTO) 11.7 % (0.0-13.0); NEUTROPHILS # (AUTO) 6.7 x10^3/uL (2.2-4.8); NEUTROPHILS % (AUTO) 81.7 % (42.0-75.0); PLATELET COUNT 84 X10^3/uL (150.0-450.0); RED BLOOD COUNT 5.69 X10^6/uL (4.7-6.0); RED CELL DISTRIBUTION WIDTH 14.3 % (11.6-16.5); WHITE BLOOD COUNT 8.2 X10^3/uL (3.6-10.0)
[2018-05-17 12:54] LABS: BILIRUBIN,URINE NEGATIVE (NEGATIVE); BLOOD/HEMOGLOBIN,URINE 5+ (NEGATIVE); GLUCOSE, URINE NEGATIVE (NEGATIVE); KETONES,URINE NEGATIVE (NEGATIVE); LEUKOCYTE ESTERASE ,URINE NEGATIVE (NEGATIVE); NITRITES,URINE NEGATIVE (NEGATIVE); PROTEIN,URINE 3+ (NEGATIVE); UROBILINOGEN,URINE NORMAL (NORMAL)
[2018-05-17 13:08] LABS: ALANINE AMINOTRANSFERASE 25 Units/L (12-78); ALBUMIN 3.8 g/dL (3.4-5.0); ALKALINE PHOSPHATASE 92 Units/L (46-116); ASPARTATE AMINO TRANSFERASE 22 Units/L (15-37); BLOOD UREA NITROGEN 26 mg/dL (7-18); CALCIUM 8.9 mg/dL (8.5-10.1); CARBON DIOXIDE 27.1 mmol/L (21-32); CHLORIDE 101 mmol/L (98-107); CREATININE 2.13 mg/dL (0.70-1.30); SODIUM 137 mmol/L (136-145); TOTAL PROTEIN 8.2 g/dL (6.4-8.2); eGFR NON BLACK RACES 33 (>60)
[2018-05-17 13:11] LABS: APPEARANCE,URINE CLEAR (CLEAR); COLOR,URINE YELLOW (YELLOW)
[2018-05-17 13:12] LABS: BACTERIA,URINE TRACE /HPF (NEGATIVE); SQUAMOUS EPITHELIAL CELL,UR RARE /HPF (NEGATIVE)
[2018-05-17 13:13] LABS: AMORPHOUS SEDIMENT,UR 1+ /HPF (NEGATIVE); MUCUS,URINE FEW /HPF (NEGATIVE)
[2018-05-17 13:26] LABS: PLATELET MORPHOLOGY COMMENT NORMAL (NORMAL)
[2018-05-17] MEDS ORDERED: NS 1000 ML 1,000 ML ONE (14:23)
[2018-05-17] MEDS ORDERED: LEVAQUIN PREMIX IV 500 MG 500 MG/100 ML BAG IV ONE (14:24)
[2018-05-17] MEDS: NS 1000 ML 1,000 ML IV SCH (14:30)
[2018-05-17] MEDS: LEVAQUIN PREMIX IV 500 MG 500 MG/100 ML BAG IV SCH (14:30)
[2018-05-17] MEDS: ZOFRAN TAB 4 MG SL PRN (15:25)
[2018-05-17] MEDS ORDERED: PHENERGAN INJ 25 MG IM PRN (16:21)
--- NOTE | 2018-05-17 16:56 | CT ---
CT OF THE ABDOMEN AND PELVIS WITHOUT CONTRAST HISTORY: Nausea and vomiting and abdominal distention Comparison: 01/24/2017 Technique: Multiple axial images of the abdomen and pelvis were obtained from the lung bases to the pubic symphysis without the administration of IV contrast. Dose reduction techniques including Automated Exposure Control (AEC) and adjustment of mA and kV were utlized. Findings: The heart is normal in size. There is no pericardial effusion. Lung bases are clear without focal consolidation, pleural effusion or pneumothorax. The sensitivity for focal lesion detection within the solid abdominal viscera is diminished without the use of IV contrast. Liver and spleen are normal in size, and contour. No focal lesions. No ductal dilitation. Gallbladder is present. No calcified gallstones or gallbladder wall thickening. The pancreas is unremarkable. Adrenal glands are normal. Status post right nephrectomy. No bowel obstruction or inflammation. Large duodenal diverticulum. Normal appendix. No abnormal appearing mesenteric or retroperitoneal lymph nodes. No free fluid or fluid collections. Bladder decompressed by [place] catheter.. Unremarkable prostate. No free fluid or abnormal pelvic lymph nodes. No aggressive osseous lesions. IMPRESSION: 1. No source of patient's pain or abdominal distention is identified on this examination. Reported By:
[2018-05-17] MEDS: TYLENOL 325 MG TAB PO PRN ×2 (17:40→21:56)
[2018-05-17 18:43] VITALS: BMI 29.5
[2018-05-17 18:45] LABS: BASOPHILS % (AUTO) 0.2 % (0.2-1.0); EOSINOPHILS # (AUTO) 0.1 x10^3/uL (0.0-0.2); HEMATOCRIT 43.3 % (42.0-54.0); HEMOGLOBIN 14.7 g/dL (13.5-18.0); LYMPHOCYTES # (AUTO) 0.5 X10^3/uL (1.3-2.9); LYMPHOCYTES % (AUTO) 6.3 % (21.0-51.0); MEAN CORPUSCULAR HEMOGLOBIN 29.5 pg (27.0-34.0); MEAN CORPUSCULAR HGB CONC 33.9 g/dL (33.0-35.0); MEAN CORPUSCULAR VOLUME 87.1 fL (80.0-100.0); MEAN PLATELET VOLUME 8.7 fL (7.4-11.0); MONOCYTES # (AUTO) 0.9 x10^3/uL (0.3-0.8); MONOCYTES % (AUTO) 11.9 % (0.0-13.0); NEUTROPHILS # (AUTO) 5.9 x10^3/uL (2.2-4.8); NEUTROPHILS % (AUTO) 80.6 % (42.0-75.0); PLATELET COUNT 138 X10^3/uL (150.0-450.0); RED BLOOD COUNT 4.97 X10^6/uL (4.7-6.0); RED CELL DISTRIBUTION WIDTH 14.3 % (11.6-16.5); WHITE BLOOD COUNT 7.3 X10^3/uL (3.6-10.0)
[2018-05-17] MEDS: LIPITOR TAB 40 MG PO SCH (21:55)
[2018-05-17] MEDS: COREG TAB 6.25 MG PO SCH (21:55)
[2018-05-18] MEDS: NS 1000 ML 1,000 ML IV SCH ×2 (02:37→17:21)
[2018-05-18] MEDS: ZOFRAN TAB 4 MG SL PRN ×2 (02:38→19:15)
[2018-05-18 05:34] LABS: BASOPHILS % (AUTO) 0.2 % (0.2-1.0); EOSINOPHILS # (AUTO) 0.2 x10^3/uL (0.0-0.2); EOSINOPHILS % (AUTO) 3.2 % (0.9-2.9); HEMATOCRIT 43.5 % (42.0-54.0); LYMPHOCYTES # (AUTO) 0.3 X10^3/uL (1.3-2.9); LYMPHOCYTES % (AUTO) 3.9 % (21.0-51.0); MEAN CORPUSCULAR HEMOGLOBIN 29.9 pg (27.0-34.0); MEAN CORPUSCULAR HGB CONC 34.4 g/dL (33.0-35.0); MEAN CORPUSCULAR VOLUME 86.8 fL (80.0-100.0); MEAN PLATELET VOLUME 9.4 fL (7.4-11.0); MONOCYTES # (AUTO) 0.6 x10^3/uL (0.3-0.8); MONOCYTES % (AUTO) 8.9 % (0.0-13.0); NEUTROPHILS # (AUTO) 5.5 x10^3/uL (2.2-4.8); NEUTROPHILS % (AUTO) 83.8 % (42.0-75.0); PLATELET COUNT 103 X10^3/uL (150.0-450.0); RED BLOOD COUNT 5.01 X10^6/uL (4.7-6.0); RED CELL DISTRIBUTION WIDTH 14.5 % (11.6-16.5); WHITE BLOOD COUNT 6.6 X10^3/uL (3.6-10.0)
[2018-05-18 05:50] LABS: ALBUMIN 2.8 g/dL (3.4-5.0); CARBON DIOXIDE 24.3 mmol/L (21-32); CREATININE 2.41 mg/dL (0.70-1.30); TOTAL PROTEIN 6.6 g/dL (6.4-8.2)
[2018-05-18] MEDS: FLOMAX PO SCH (09:50)
[2018-05-18] MEDS: LEVAQUIN PREMIX IV 500 MG 500 MG/100 ML BAG IV SCH (09:50)
[2018-05-18] MEDS: BENICAR TAB 40 MG PO SCH (09:50)
[2018-05-18] MEDS: COREG TAB 6.25 MG PO SCH ×2 (09:50→20:21)
[2018-05-18] MEDS: PLAVIX PO SCH (09:50)
--- NOTE | 2018-05-18 10:01 | DR.UPDATE ---
H&P Update History and Physical Update: PRESENTED TO THE OFFICE WITH FEVER, URINARY URGENCY, AND URINARY FREQUENCY. WE ADMITTED PATIENT TO THE HOSPITAL FOR FURTHER EVALUATION AND TO RULE OUT PYELONEPHRITIS. ON ADMISSION, WE PLANNED TO OBTAIN LABS, URINALYIS, ABDOMEN/PELVIS CT WITHOUT CONTRAST, AND PLACE A PENA CATHETER. A H&P WAS COMPLETED PRIOR TO ADMISSION. PATIENT HAS BEEN SEEN AND EXAMINED WITH NO CHANGES NOTED TO H&P. Changes noted: NO
[2018-05-18] MEDS: TYLENOL 325 MG TAB PO PRN ×2 (12:03→21:02)
[2018-05-18 13:38] LABS: BASOPHILS % (AUTO) 0.2 % (0.2-1.0); EOSINOPHILS # (AUTO) 0.2 x10^3/uL (0.0-0.2); EOSINOPHILS % (AUTO) 4.1 % (0.9-2.9); HEMATOCRIT 41.3 % (42.0-54.0); HEMOGLOBIN 14.1 g/dL (13.5-18.0); LYMPHOCYTES # (AUTO) 0.4 X10^3/uL (1.3-2.9); LYMPHOCYTES % (AUTO) 5.9 % (21.0-51.0); MEAN CORPUSCULAR HEMOGLOBIN 29.4 pg (27.0-34.0); MEAN CORPUSCULAR VOLUME 86.4 fL (80.0-100.0); MONOCYTES # (AUTO) 0.6 x10^3/uL (0.3-0.8); MONOCYTES % (AUTO) 9.4 % (0.0-13.0); NEUTROPHILS # (AUTO) 4.9 x10^3/uL (2.2-4.8); NEUTROPHILS % (AUTO) 80.4 % (42.0-75.0); PLATELET COUNT 96 X10^3/uL (150.0-450.0); RED BLOOD COUNT 4.78 X10^6/uL (4.7-6.0); RED CELL DISTRIBUTION WIDTH 14.2 % (11.6-16.5); WHITE BLOOD COUNT 6.1 X10^3/uL (3.6-10.0)
[2018-05-18 18:16] LABS: BILIRUBIN,URINE 1+ (NEGATIVE); BLOOD/HEMOGLOBIN,URINE 5+ (NEGATIVE); GLUCOSE, URINE NEGATIVE (NEGATIVE); KETONES,URINE NEGATIVE (NEGATIVE); LEUKOCYTE ESTERASE ,URINE 2+ (NEGATIVE); NITRITES,URINE NEGATIVE (NEGATIVE); PROTEIN,URINE 3+ (NEGATIVE); UROBILINOGEN,URINE 1+ (NORMAL)
[2018-05-18 18:22] LABS: AMORPHOUS SEDIMENT,UR 2+ /HPF (NEGATIVE); APPEARANCE,URINE CLOUDY (CLEAR); BACTERIA,URINE TRACE /HPF (NEGATIVE); COLOR,URINE DARK YELLOW (YELLOW); RBC,URINE 20-30 /HPF (NONE SEEN); SQUAMOUS EPITHELIAL CELL,UR RARE /HPF (NEGATIVE)
[2018-05-18] MEDS: LIPITOR TAB 40 MG PO SCH (20:22)
[2018-05-18] MEDS: PHENERGAN INJ 25 MG IM PRN (20:40)
[2018-05-19 02:08] LABS: STOOL FOR WBC POSITIVE (NEGATIVE)
[2018-05-19] MEDS: PHENERGAN INJ 25 MG IM PRN (04:04)
[2018-05-19 06:47] LABS: ALANINE AMINOTRANSFERASE 52 Units/L (12-78); ALBUMIN 2.7 g/dL (3.4-5.0); ALKALINE PHOSPHATASE 69 Units/L (46-116); ASPARTATE AMINO TRANSFERASE 50 Units/L (15-37); BLOOD UREA NITROGEN 38 mg/dL (7-18); CALCIUM 8.1 mg/dL (8.5-10.1); CARBON DIOXIDE 24.2 mmol/L (21-32); CHLORIDE 103 mmol/L (98-107); COR CA(FOR HYPOALB) 9.1 mg/dL (8.5-10.1); CREATININE 2.67 mg/dL (0.70-1.30); SODIUM 138 mmol/L (136-145); TOTAL PROTEIN 6.7 g/dL (6.4-8.2); eGFR NON BLACK RACES 25 (>60)
[2018-05-19] MEDS: NS 1000 ML 1,000 ML IV SCH ×2 (06:59→21:04)
[2018-05-19] MEDS: COREG TAB 6.25 MG PO SCH ×2 (09:08→21:01)
[2018-05-19] MEDS: PLAVIX PO SCH (09:08)
[2018-05-19] MEDS: FLOMAX PO SCH (09:08)
[2018-05-19] MEDS: BENICAR TAB 40 MG PO SCH (09:09)
--- NOTE | 2018-05-19 09:32 | PCM.PROG ---
Progress Note - Progress Note for Day of Date of Exam: 05/18/18 - Subjective Subjective: WAS ADMITTED FOR URINARY URGENCY/FREQUENCY AND FEVER. TODAY, HE IS ALERT AND ORIENTED, LYING IN BED ON MORNING ROUNDS. HE REPORTS DIARRHEA THIS MORNING AND SHORTNESS OF BREATH. ON EXAMINATION, HEART IS REGULAR IN RATE AND RHYTHM. BILATERAL LUNGS ARE CLEAR THROUGHOUT. ABDOMEN IS ROUND, SOFT, AND NOTED WITH MILD, DIFFUSE TENDERNESS TO PALPATION. HE IS NOTED WITH A PENA CATHETER TO BEDSIDE. HE REPORTS IMMEDIATE RELIEF FROM ABDOMINAL PAIN YESTERDAY AFTER THE PENA WAS INSERTED. HIS VITALS THIS MORNING ARE 100.4-94-20-97%-117/56. LABS WERE OBTAINED. ABNORMAL LAB VALUES INCLUDE THE FOLLOWING: HCT 41.3, BUN 32, CREATININE 2.41, GLUCOSE 138, CALCIUM 8.0, TOTAL BILI 1.50, ALBUMIN 2.8. A URINALYSIS WAS OBTAINED ON ADMISSION AND REVEALED 3+ PROTEIN, 5+ OCCULT BLOOD, RBC 5-10, WBC 0-2, BACTERIA TRACE, MUCUS FEW. A CULTURE IS PENDING. TODAY, WE WILL OBTAIN AN ECHO, PSA LEVEL, AND STOOL STUDIES. WE WILL CONTINUE WITH IV FLUIDS, IV LEVAQUIN, AND FLOMAX 0.4MG PO DAILY. OTHERWISE, WE WILL FOLLOW UP WITH AM LABS AND CONTINUE TO MONITOR. - Past Medical Family Social History Past Med/Fam/Surg Hx: No changes since H&P Allergies: Allergies No Known Drug Allergies Allergy (Verified 01/31/17 16:58) - Review of Systems ROS: No change since H&P - Vital Signs and I&O's Vital Signs: Temperature 99.4 F Pulse Rate [Left Brachial] 115 Respiratory Rate 18 Blood Pressure [Left Arm] 126/79 Blood Pressure [Right Arm] 117/56 Blood Pressure 170/80 O2 Sat by Pulse Oximetry 94 Intake and Output: Intake & Output 05/16/18 05/17/18 05/18/18 05/19/18 11:59 11:59 11:59 11:59 Intake Total 950 / 950 600 / 600 Output Total 1000 / 1000 1300 / 1300 Balance -50 / -50 -700 / -700 - Physical Exam Oriented: Normal Eyes: Normal Ear: Normal Nose: Normal Throat: Normal Respiratory: Normal Cardiovascular: Normal. negative: S3, S4, Murmur : Normal Auscultation: Bowel Sounds: Normal Palpation: Normal Tenderness: Diffuse, Mild. negative: Rebound, Guarding, Rigidity Skin: Normal Musculoskeletal: Normal Psychiatric: Normal Mood Description: Calm Affect: Normal Speech Pattern: Clear, Appropriate - Laboratory and Diagnostics Result Diagrams: 05/18/18 13:30 05/19/18 05:50 Labs: 05/18/18 17:41 Urine,Clean Catch Urine Culture - Preliminary 05/17/18 12:23 Blood Blood Culture - Preliminary 05/17/18 12:35 Blood Blood Culture - Preliminary 05/17/18 12:20 Urine,[place] Urine Culture - Final 05/18/18 23:58 Stool - Final Laboratory WBC 6.1 X10^3/uL (3.6-10.0) 05/18/18 13:30 RBC 4.78 X10^6/uL (4.7-6.0) 05/18/18 13:30 Hgb 14.1 g/dL (13.5-18.0) 05/18/18 13:30 Hct 41.3 % (42.0-54.0) L 05/18/18 13:30 MCV 86.4 fL (80.0-100.0) 05/18/18 13:30 MCH 29.4 pg (27.0-34.0) 05/18/18 13:30 MCHC 34.0 g/dL (33.0-35.0) 05/18/18 13:30 RDW 14.2 % (11.6-16.5) 05/18/18 13:30 Plt Count 96 X10^3/uL (150.0-450.0) L 05/18/18 13:30 Plt Count Comment Decreased (ADEQUATE) 05/17/18 12:23 MPV 9.0 fL (7.4-11.0) 05/18/18 13:30 Neut % (Auto) 80.4 % (42.0-75.0) H 05/18/18 13:30 Lymph % (Auto) 5.9 % (21.0-51.0) L 05/18/18 13:30 [place] % (Auto) 9.4 % (0.0-13.0) 05/18/18 13:30 Eos % (Auto) 4.1 % (0.9-2.9) H 05/18/18 13:30 Baso % (Auto) 0.2 % (0.2-1.0) 05/18/18 13:30 Neut # (Auto) 4.9 x10^3/uL (2.2-4.8) H 05/18/18 13:30 Lymph # (Auto) 0.4 X10^3/uL (1.3-2.9) L 05/18/18 13:30 [place] # (Auto) 0.6 x10^3/uL (0.3-0.8) 05/18/18 13:30 Eos # (Auto) 0.2 x10^3/uL (0.0-0.2) 05/18/18 13:30 Baso # (Auto) 0.0 X10^3/uL (0.0-0.1) 05/18/18 13:30 Absolute Nucleated RBC 0.0 /100WBC 05/18/18 13:30 Plt Clumps, EDTA Few 05/17/18 12:23 Plt Morphology Comment Normal (NORMAL) 05/17/18 12:23 RBC Morphology Normal (NORMAL) 05/17/18 12:23 Sodium 138 mmol/L (136-145) 05/19/18 05:50 Corrected Sodium TNP 05/19/18 05:50 Potassium 3.7 mmol/L (3.5-5.1) 05/19/18 05:50 Chloride 103 mmol/L (98-107) 05/19/18 05:50 Carbon Dioxide 24.2 mmol/L (21-32) 05/19/18 05:50 BUN 38 mg/dL (7-18) H 05/19/18 05:50 Creatinine 2.67 mg/dL (0.70-1.30) H 05/19/18 05:50 Est GFR (MDRD) Af Amer 30 (>60) L 05/19/18 05:50 Est GFR (MDRD) Non-Af 25 (>60) L 05/19/18 05:50 Glucose 107 mg/dL (65-99) H 05/19/18 05:50 Lactic Acid 0.6 mmol/L (0.4-2.0) 05/18/18 13:30 Calcium 8.1 mg/dL (8.5-10.1) L 05/19/18 05:50 Corrected Calcium 9.1 mg/dL (8.5-10.1) 05/19/18 05:50 Total Bilirubin 1.20 mg/dL (0.2-1.0) H 05/19/18 05:50 AST 50 Units/L (15-37) H 05/19/18 05:50 ALT 52 Units/L (12-78) 05/19/18 05:50 Alkaline Phosphatase 69 Units/L (46-116) 05/19/18 05:50 Total Protein 6.7 g/dL (6.4-8.2) 05/19/18 05:50 Albumin 2.7 g/dL (3.4-5.0) L 05/19/18 05:50 Globulin 4.0 g/dL (2.5-4.5) 05/19/18 05:50 Albumin/Globulin Ratio 0.7 Ratio (1.1-2.1) L 05/19/18 05:50 Total PSA 6.62 ng/mL (0.13-4.0) H 05/18/18 05:20 Specimen Type Clean catch urine 05/18/18 17:40 Urine Color Dark yellow (YELLOW) 05/18/18 17:40 Urine Appearance Cloudy (CLEAR) 05/18/18 17:40 Urine pH 5.0 (5.0 - 8.0) 05/18/18 17:40 Ur Specific [place] 1.025 (1.000-1.030) 05/18/18 17:40 Urine Protein 3+ (NEGATIVE) 05/18/18 17:40 Urine Glucose (UA) Negative (NEGATIVE) 05/18/18 17:40 Urine Ketones Negative (NEGATIVE) 05/18/18 17:40 Urine Occult Blood 5+ (NEGATIVE) 05/18/18 17:40 Urine Nitrite Negative (NEGATIVE) 05/18/18 17:40 Urine Bilirubin 1+ (NEGATIVE) 05/18/18 17:40 Urine Urobilinogen 1+ (NORMAL) 05/18/18 17:40 Ur Leukocyte Esterase 2+ (NEGATIVE) 05/18/18 17:40 Urine RBC 20-30 /HPF (NONE SEEN) 05/18/18 17:40 Urine WBC 5-10 /HPF (NONE SEEN) 05/18/18 17:40 Ur Squamous Epith Cells Rare /HPF (NEGATIVE) 05/18/18 17:40 Amorphous Sediment 2+ /HPF (NEGATIVE) 05/18/18 17:40 Urine Bacteria Trace /HPF (NEGATIVE) 05/18/18 17:40 Urine Mucus Few /HPF (NEGATIVE) 05/17/18 12:20 Ur Culture Indicated? Yes/culture set up 05/18/18 17:40 Stool Description 50 g. brown/liquid 05/18/18 23:58 Stl Occult Blood (IFOB) Positive (NEGATIVE) A 05/18/18 23:58 Stool for White Cells Positive (NEGATIVE) A 05/18/18 23:58 Stl C. diff Tox B Gene Positive (NEGATIVE) A 05/18/18 23:58 Stl C. diff [id number] Negative (NEGATIVE) 05/18/18 23:58 C. difficile Toxin A&B Negative (NEGATIVE) 05/18/18 23:58 Influenza Type A (PCR) Negative (NEGATIVE) 05/17/18 16:45 Influenza Type B (PCR) Negative (NEGATIVE) 05/17/18 16:45 - Plan (1) Pyelonephritis Status: Suspected Plan: NORMAL SALINE IV, LEVAQUIN IV, FLOMAX 0.4MG PO DAILY, CONTINUE TO MONITOR (2) Urinary frequency Status: Acute (3) Urinary urgency Status: Acute (4) Hematuria Status: Acute Qualifiers: Hematuria type: unspecified type Qualified Code(s): R31.9 - Hematuria, unspecified
[2018-05-19] MEDS ORDERED: ZOFRAN INJ 4 MG VIAL IVP PRN (11:04)
[2018-05-19] MEDS ORDERED: VSL#3 PO SCH (11:15)
[2018-05-19] MEDS: GENTAMICIN TOPICAL CRM TOP SCH ×2 (12:48→21:02)
[2018-05-19] MEDS: VANCOMYCIN HCL PO SCH ×3 (12:49→21:01)
[2018-05-19] MEDS: CIPRO IV 400 MG PREMIX* 400 MG/200 ML IV.SOLN. IV SCH ×2 (12:49→21:00)
[2018-05-19] MEDS: CULTURELLE PRO-WELL PROBIOTIC CAP PO SCH (12:49)
[2018-05-19] MEDS: TEMOVATE CREAM EXT SCH ×2 (14:15→21:02)
[2018-05-19] MEDS: FLAGYL IV PREMIX 500 MG BAG 500 MG/100 ML BAG IV SCH ×3 (14:50→21:00)
--- NOTE | 2018-05-19 14:56 | RAD ---
HISTORY: Nausea vomiting abdominal distension history of right kidney cancer Study: PA and lateral chest Comparison: PA and lateral chest 02/05/2017 Technique: PA and lateral chest Findings: Soft tissues and bony thorax are normal. Heart size and configuration are upper limits of normal but otherwise normal in configuration. The airway is normal vascularity is normal IMPRESSION: 1. Borderline cardiomegaly but no acute cardiopulmonary abnormalities and no change from prior study 02/05/2017. Reported By:
[2018-05-19] MEDS: TYLENOL 325 MG TAB PO PRN ×2 (17:18→21:01)
[2018-05-19 18:11] LABS: BASOPHILS % (AUTO) 0.2 % (0.2-1.0); EOSINOPHILS # (AUTO) 0.2 x10^3/uL (0.0-0.2); EOSINOPHILS % (AUTO) 4.6 % (0.9-2.9); HEMATOCRIT 44.6 % (42.0-54.0); HEMOGLOBIN 15.1 g/dL (13.5-18.0); LYMPHOCYTES # (AUTO) 0.4 X10^3/uL (1.3-2.9); LYMPHOCYTES % (AUTO) 7.6 % (21.0-51.0); MEAN CORPUSCULAR HEMOGLOBIN 29.4 pg (27.0-34.0); MEAN CORPUSCULAR VOLUME 86.6 fL (80.0-100.0); MONOCYTES # (AUTO) 0.5 x10^3/uL (0.3-0.8); MONOCYTES % (AUTO) 9.8 % (0.0-13.0); NEUTROPHILS % (AUTO) 77.8 % (42.0-75.0); PLATELET COUNT 68 X10^3/uL (150.0-450.0); RED BLOOD COUNT 5.15 X10^6/uL (4.7-6.0); RED CELL DISTRIBUTION WIDTH 14.6 % (11.6-16.5); WHITE BLOOD COUNT 5.1 X10^3/uL (3.6-10.0)
[2018-05-19] MEDS: LIPITOR TAB 40 MG PO SCH (21:01)
[2018-05-19] MEDS ORDERED: ROBITUSSIN DM PO PRN (22:28)
[2018-05-19] MEDS ORDERED: PHENERGAN INJ 25 MG IM PRN (22:28)
[2018-05-20] MEDS: FLAGYL IV PREMIX 500 MG BAG 500 MG/100 ML BAG IV SCH ×4 (03:03→20:40)
[2018-05-20 06:09] LABS: BASOPHILS % (AUTO) 0.3 % (0.2-1.0); EOSINOPHILS # (AUTO) 0.4 x10^3/uL (0.0-0.2); EOSINOPHILS % (AUTO) 6.5 % (0.9-2.9); HEMATOCRIT 42.1 % (42.0-54.0); HEMOGLOBIN 14.2 g/dL (13.5-18.0); LYMPHOCYTES # (AUTO) 0.3 X10^3/uL (1.3-2.9); LYMPHOCYTES % (AUTO) 5.1 % (21.0-51.0); MEAN CORPUSCULAR HEMOGLOBIN 29.5 pg (27.0-34.0); MEAN CORPUSCULAR HGB CONC 33.7 g/dL (33.0-35.0); MEAN CORPUSCULAR VOLUME 87.5 fL (80.0-100.0); MEAN PLATELET VOLUME 8.7 fL (7.4-11.0); MONOCYTES # (AUTO) 0.5 x10^3/uL (0.3-0.8); MONOCYTES % (AUTO) 8.1 % (0.0-13.0); PLATELET COUNT 43 X10^3/uL (150.0-450.0); RED BLOOD COUNT 4.81 X10^6/uL (4.7-6.0); RED CELL DISTRIBUTION WIDTH 14.5 % (11.6-16.5); WHITE BLOOD COUNT 6.2 X10^3/uL (3.6-10.0)
[2018-05-20 06:27] LABS: ALBUMIN 2.4 g/dL (3.4-5.0); CALCIUM 7.9 mg/dL (8.5-10.1); CARBON DIOXIDE 22.1 mmol/L (21-32); COR CA(FOR HYPOALB) 9.2 mg/dL (8.5-10.1); CREATININE 2.31 mg/dL (0.70-1.30); TOTAL PROTEIN 5.9 g/dL (6.4-8.2)
[2018-05-20 06:40] LABS: PLATELET MORPHOLOGY COMMENT NORMAL (NORMAL)
[2018-05-20] MEDS: FLOMAX PO SCH (08:46)
[2018-05-20] MEDS: BENICAR TAB 40 MG PO SCH (08:46)
[2018-05-20] MEDS: CULTURELLE PRO-WELL PROBIOTIC CAP PO SCH (08:46)
[2018-05-20] MEDS: VANCOMYCIN HCL PO SCH ×4 (08:46→20:41)
[2018-05-20] MEDS: COREG TAB 6.25 MG PO SCH ×2 (08:46→20:41)
[2018-05-20] MEDS: TEMOVATE CREAM EXT SCH ×2 (08:50→20:42)
[2018-05-20] MEDS: PLAVIX PO SCH (08:50)
[2018-05-20] MEDS: GENTAMICIN TOPICAL CRM TOP SCH ×2 (08:51→20:42)
[2018-05-20] MEDS: CIPRO IV 400 MG PREMIX* 400 MG/200 ML IV.SOLN. IV SCH (09:41)
[2018-05-20 13:14] LABS: AMYLASE 43 Units/L (25-115); LIPASE 170 Units/L (73-393)
[2018-05-20] MEDS: NS 1000 ML 1,000 ML IV SCH ×3 (14:04→23:53)
[2018-05-20] MEDS: CIPRO IV 200 MG PREMIX* 200 MG/100 ML BAG IV SCH (20:40)
[2018-05-20] MEDS: TYLENOL 325 MG TAB PO PRN (20:41)
[2018-05-20] MEDS: LIPITOR TAB 40 MG PO SCH (20:41)
[2018-05-21] MEDS: FLAGYL IV PREMIX 500 MG BAG 500 MG/100 ML BAG IV SCH ×3 (02:12→15:56)
--- NOTE | 2018-05-21 07:38 | RAD ---
HISTORY: CT of, abdominal distention Study: Two-view abdomen Comparison: None Findings: Evaluation of the abdomen demonstrates a normal bowel gas pattern. No pathological soft tissue mass or calcification can be observed. The bony structures are grossly intact. IMPRESSION: 1. No evidence for acute abdominal pathology identified. Reported By:
--- NOTE | 2018-05-21 07:39 | RAD ---
HISTORY: Shortness of breath Study: Single-view chest Comparison: 05/19/2018 Findings: The trachea is midline. The cardiac silhouette is stable in size. The lungs are clear without focal infiltrate or effusion. The bony thorax is unremarkable. IMPRESSION: 1. No acute cardiopulmonary disease. Reported By:
[2018-05-21] MEDS: VANCOMYCIN HCL PO SCH ×5 (09:03→21:13)
[2018-05-21] MEDS: BENICAR TAB 40 MG PO SCH (09:03)
[2018-05-21] MEDS: COREG TAB 6.25 MG PO SCH ×2 (09:03→21:12)
[2018-05-21] MEDS: CULTURELLE PRO-WELL PROBIOTIC CAP PO SCH (09:03)
[2018-05-21] MEDS: FLOMAX PO SCH (09:03)
[2018-05-21] MEDS: GENTAMICIN TOPICAL CRM TOP SCH ×2 (09:04→21:14)
[2018-05-21] MEDS: TEMOVATE CREAM EXT SCH ×2 (09:04→21:14)
[2018-05-21] MEDS: PLAVIX PO SCH (09:07)
[2018-05-21] MEDS: CIPRO IV 200 MG PREMIX* 200 MG/100 ML BAG IV SCH (10:17)
[2018-05-21] MEDS: NS 1000 ML 1,000 ML IV SCH (15:57)
[2018-05-21] MEDS ORDERED: BENADRYL INJ 50 MG VIAL IVP ONE (16:45)
[2018-05-21] MEDS ORDERED: LANOXIN INJ IVP ONE (16:48)
[2018-05-21] MEDS: SOLU-Medrol 40 MG VIAL IVP SCH ×2 (16:49→21:13)
[2018-05-21] MEDS ORDERED: LANOXIN INJ ONE (16:51)
[2018-05-21] MEDS ORDERED: BENADRYL INJ 50 MG VIAL ONE (16:51)
--- NOTE | 2018-05-21 20:50 | RAD ---
HISTORY: Shortness of breath Findings: Left approach subclavian central venous catheter is observed with tip terminating the superior vena cava. Lungs are clear. Borderline cardiomegaly. No pneumothorax. IMPRESSION: No acute cardiopulmonary disease. Reported By:
[2018-05-21] MEDS: LIPITOR TAB 40 MG PO SCH (21:12)
[2018-05-21] MEDS: FLAGYL TAB 500 MG PO SCH (21:13)
[2018-05-21] MEDS: TYLENOL 325 MG TAB PO PRN (21:14)
[2018-05-22 05:29] LABS: BASOPHILS % (AUTO) 0.4 % (0.2-1.0); EOSINOPHILS % (AUTO) 0.3 % (0.9-2.9); HEMATOCRIT 38.6 % (42.0-54.0); HEMOGLOBIN 12.9 g/dL (13.5-18.0); LYMPHOCYTES # (AUTO) 0.6 X10^3/uL (1.3-2.9); LYMPHOCYTES % (AUTO) 6.9 % (21.0-51.0); MEAN CORPUSCULAR HEMOGLOBIN 29.4 pg (27.0-34.0); MEAN CORPUSCULAR HGB CONC 33.4 g/dL (33.0-35.0); MEAN PLATELET VOLUME 9.2 fL (7.4-11.0); MONOCYTES # (AUTO) 0.3 x10^3/uL (0.3-0.8); MONOCYTES % (AUTO) 3.9 % (0.0-13.0); NEUTROPHILS # (AUTO) 7.1 x10^3/uL (2.2-4.8); NEUTROPHILS % (AUTO) 88.5 % (42.0-75.0); PLATELET COUNT 39 X10^3/uL (150.0-450.0); RED BLOOD COUNT 4.38 X10^6/uL (4.7-6.0); RED CELL DISTRIBUTION WIDTH 14.6 % (11.6-16.5)
[2018-05-22 05:39] LABS: ALBUMIN 2.1 g/dL (3.4-5.0); CALCIUM 7.7 mg/dL (8.5-10.1); CARBON DIOXIDE 22.8 mmol/L (21-32); COR CA(FOR HYPOALB) 9.2 mg/dL (8.5-10.1); CREATININE 1.89 mg/dL (0.70-1.30); TOTAL PROTEIN 5.4 g/dL (6.4-8.2)
[2018-05-22] MEDS: NS 1000 ML 1,000 ML IV SCH ×2 (05:56)
[2018-05-22 05:57] LABS: WHITE BLOOD COUNT 8.1 X10^3/uL (3.6-10.0)
[2018-05-22] MEDS: FLAGYL TAB 500 MG PO SCH (05:57)
[2018-05-22 05:58] LABS: PLATELET MORPHOLOGY COMMENT NORMAL (NORMAL)
[2018-05-22] MEDS: VANCOMYCIN HCL PO SCH (08:49)
[2018-05-22] MEDS: FLOMAX PO SCH (08:50)
[2018-05-22] MEDS: BENICAR TAB 40 MG PO SCH (08:50)
[2018-05-22] MEDS: CULTURELLE PRO-WELL PROBIOTIC CAP PO SCH (08:50)
[2018-05-22] MEDS: PLAVIX PO SCH (08:50)
[2018-05-22] MEDS: COREG TAB 6.25 MG PO SCH (08:50)
[2018-05-22] MEDS: GENTAMICIN TOPICAL CRM TOP SCH (08:54)
[2018-05-22] MEDS: TEMOVATE CREAM EXT SCH (08:55)
[2018-05-22 10:24] VITALS: BP 156/86
== END 2018-05-22 13:10 | disposition home or self-care (01) | DRG 690 ==
LOC: MED/SURG
PROVIDERS: ADMIT Internal Medicine; ATTEND Internal Medicine
DX: R31.9 Hematuria, unspecified; R39.15 Urgency of urination; N40.1 Benign prostatic hyperplasia with lower urinary tract symptoms; R19.7 Diarrhea, unspecified; A04.72 Enterocolitis due to Clostridium difficile, not specified as recurrent; N10 Acute pyelonephritis; R06.02 Shortness of breath; R26.89 Other abnormalities of gait and mobility; I48.91 Unspecified atrial fibrillation; R30.0 Dysuria; R35.0 Frequency of micturition; N28.9 Disorder of kidney and ureter, unspecified; I87.2 Venous insufficiency (chronic) (peripheral)
CPT/HCPCS: 36415; 36556; 71010; 71020; 71045; 71046; 74000; 74018; 74176; 80053; 81001; 82150; 82270; 83605; 83630; 83690; 84153; 85025; 87040; 87045; 87086; 87324; 87427; 87449; 87493; 87502; 87899; 93005; 93306; 97162; 99231; A4216; A4222; S0030; G0378; J0744; J1160; J1200; J1956; J2550; J2920; J3490; J7030; J7040; S0119; S0181

== ENCOUNTER 2018-05-27 15:27 | Observation (INO) ==
[2018-05-27 16:35] LABS: BILIRUBIN,URINE NEGATIVE (NEGATIVE); BLOOD/HEMOGLOBIN,URINE 2+ (NEGATIVE); GLUCOSE, URINE NEGATIVE (NEGATIVE); KETONES,URINE NEGATIVE (NEGATIVE); LEUKOCYTE ESTERASE ,URINE 1+ (NEGATIVE); NITRITES,URINE NEGATIVE (NEGATIVE); PROTEIN,URINE 3+ (NEGATIVE); UROBILINOGEN,URINE NORMAL (NORMAL)
[2018-05-27 16:41] LABS: APPEARANCE,URINE CLOUDY (CLEAR); COLOR,URINE YELLOW (YELLOW)
[2018-05-27] MEDS ORDERED: CATAPRES TAB 0.1 MG PO ONE (17:03)
[2018-05-27] MEDS ORDERED: CATAPRES TAB 0.1 MG ONE (17:06)
[2018-05-27 17:17] LABS: AMORPHOUS SEDIMENT,UR TRACE /HPF (NEGATIVE); BACTERIA,URINE NEGATIVE /HPF (NEGATIVE); RBC,URINE 0-2 /HPF (NONE SEEN); SQUAMOUS EPITHELIAL CELL,UR RARE /HPF (NEGATIVE)
--- NOTE | 2018-05-27 17:51 | DR.GENAD ---
HPI Time Seen Time Seen by Provider: 05/27/18 16:25 PCP Primary Care Physician: DR PONCE Complaint/Symptoms Chief Complaint:: PT WAS DISCHARGE FROM HOSPITAL ON TUESDAY AFTER BEING TREATED FOR CDIFF AND URINARY RETENTION. SINCE TUESDAY PT SILL HASN'T FELT GOOD. PT C/O GENERALIZED WEAKNESS, DIARRHEA AND NAUSEA WITH VOMITING. PT IS STILL NOT URINATING NORMALLY. Self Treatment fo Chief Complaint: PT HAS BEEN TAKING FLAGYL 500MG PO TID Source History Provided: Patient Mode of Arrival Mode of Arrival: Wheelchair Timing Onset of Chief Complaint: 05/22/18 PMH PMH Past Medical History: Yes Past Medical History: Arthritis, Coronary Artery Disease, Dyslipidemia and Hypertension Past Medical History Comment: AFIB Past Surgical History: Yes Surgical History: Angioplasty/Stents Past Surgical History Comment: WATCHMAN DEVICE, RIGHT NEPHRECTOMY Family History History of Family Medical Conditions: Yes Family Medical History: Diabetes Mellitus, Cancer and Coronary Artery Disease Social History Does patient currently use any type of tobacco product: No Have you used tobacco products in the last 12 months: No Type of Tobacco Use: None Does any household member use tobacco: No Alcohol Use: Rarely Do you use any recreational Drugs:: No Lives With: Spouse Lives Where: Home infectious screening In the last 2 months have you had wt loss of >10#?: NO Have you had fever, night sweats or hemotysis?: No Have you traveled outside the country in the last 6 months?: No Isolation: Standard PE Vital Signs Vitals: Temperature 98.9 F Pulse Rate [Left Brachial] 74 Pulse Rate 99 Respiratory Rate 20 Blood Pressure [Left Arm] 135/60 Blood Pressure [Right Arm] 126/58 Blood Pressure 175/82 O2 Sat by Pulse Oximetry 95 General Limitations: No Limitations General Appearance: Alert and In No Apparent Distress Head Head Exam: Normal Inspection, Atraumatic and Normocephalic Eyes Eye exam: Normal Appearance, PERRL and EOMI ENT ENT Exam: Normal Exam, Normal Oropharynx and Normal External Ear Exam External Ear Exam: Normal External Inspection and Auricular Hematoma TM/Canal Exam: Bilateral: Normal Nose Exam: Normal Nose Exam Mouth Exam: Normal Inspection Throat Exam: Normal Inspection Neck Neck Exam: Normal Inspection and Full ROM Chest Chest Inspection: Normal Inspection and Symmetric Chest Wall Rise Respiratory Respiratory Exam: Normal Lung Sounds Bilat and Accessory Muscle Use Cardiovascular Cardiovascular Exam: Regular Rate and Normal Rhythm Abdominal Exam Abdominal Exam: Normal Inspection, Normal Bowel Sounds, Soft and Trauma; negative Incision Extremities Extremities Exam: Other (Right hand edematous, RLE edema) Back Back Exam: Normal Inspection and Full ROM Neurologic Neurological Exam: Alert and Oriented X3 Psychiatric Psychiatric Exam: Normal Affect and Normal Mood Skin Skin Exam: Warm, Dry, Intact and Normal Color COURSE Consultation Called: 19:19 Consultation Comments: Dr. Moscoso agreed to admit for further evaluation ROR Labs Reviewed Laboratory Results Reviewed?: Yes Result Diagrams: 05/28/18 06:05 05/28/18 06:05 Laboratory: 05/28/18 08:45 Stool - Final WBC 8.4 X10^3/uL (3.6-10.0) 05/28/18 06:05 RBC 4.04 X10^6/uL (4.7-6.0) L 05/28/18 06:05 Hgb 11.7 g/dL (13.5-18.0) L 05/28/18 06:05 Hct 35.0 % (42.0-54.0) L 05/28/18 06:05 MCV 86.6 fL (80.0-100.0) 05/28/18 06:05 MCH 28.9 pg (27.0-34.0) 05/28/18 06:05 MCHC 33.3 g/dL (33.0-35.0) 05/28/18 06:05 RDW 14.9 % (11.6-16.5) 05/28/18 06:05 Plt Count 164 X10^3/uL (150.0-450.0) 05/28/18 06:05 Plt Count Comment Adequate (ADEQUATE) 05/27/18 17:58 MPV 9.3 fL (7.4-11.0) 05/28/18 06:05 Neut % (Auto) 65.5 % (42.0-75.0) 05/28/18 06:05 Lymph % (Auto) 10.7 % (21.0-51.0) L 05/28/18 06:05 [place] % (Auto) 12.5 % (0.0-13.0) 05/28/18 06:05 Eos % (Auto) 10.7 % (0.9-2.9) H 05/28/18 06:05 Baso % (Auto) 0.6 % (0.2-1.0) 05/28/18 06:05 Neut # (Auto) 5.5 x10^3/uL (2.2-4.8) H 05/28/18 06:05 Lymph # (Auto) 0.9 X10^3/uL (1.3-2.9) L 05/28/18 06:05 [place] # (Auto) 1.0 x10^3/uL (0.3-0.8) H 05/28/18 06:05 Eos # (Auto) 0.9 x10^3/uL (0.0-0.2) H 05/28/18 06:05 Baso # (Auto) 0.0 X10^3/uL (0.0-0.1) 05/28/18 06:05 Absolute Nucleated RBC 0.0 /100WBC 05/28/18 06:05 Plt Clumps, EDTA Few 05/27/18 17:58 Plt Morphology Comment Normal (NORMAL) 05/27/18 17:58 RBC Morphology Normal (NORMAL) 05/27/18 17:58 D-Dimer 2060 ng/mL (0-400) H* 05/28/18 12:45 Sodium 140 mmol/L (136-145) 05/28/18 06:05 Corrected Sodium TNP 05/28/18 06:05 Potassium 3.9 mmol/L (3.5-5.1) 05/28/18 06:05 Chloride 107 mmol/L (98-107) 05/28/18 06:05 Carbon Dioxide 25.8 mmol/L (21-32) 05/28/18 06:05 BUN 18 mg/dL (7-18) 05/28/18 06:05 Creatinine 1.67 mg/dL (0.70-1.30) H 05/28/18 06:05 Est GFR (MDRD) Af Amer 52 (>60) L 05/28/18 06:05 Est GFR (MDRD) Non-Af 43 (>60) L 05/28/18 06:05 Glucose 109 mg/dL (65-99) H 05/28/18 06:05 POC Glucose (mg/dL) 129 mg/dL (65-99) H 05/28/18 16:46 Lactic Acid 1.4 mmol/L (0.4-2.0) 05/27/18 17:58 Calcium 7.6 mg/dL (8.5-10.1) L 05/28/18 06:05 Corrected Calcium 9.4 mg/dL (8.5-10.1) 05/28/18 06:05 Iron 22 ug/dL (50-175) L 05/28/18 06:05 Transferrin 75 mg/dL (202-364) L 05/28/18 06:05 Ferritin 639 ng/mL (26-388) H 05/28/18 06:05 Total Bilirubin 0.60 mg/dL (0.2-1.0) 05/28/18 06:05 AST 21 Units/L (15-37) 05/28/18 06:05 ALT 24 Units/L (12-78) 05/28/18 06:05 Alkaline Phosphatase 42 Units/L (46-116) L 05/28/18 06:05 Creatine Kinase 17 Units/L (39-308) L 05/28/18 06:05 CK-MB (CK-2) < 1.0 ng/mL (0-4.0) 05/28/18 06:05 CK/CKMB % Calc 5.9 % (<4) 05/28/18 06:05 Troponin I 0.02 ng/mL (0-1.5) 05/28/18 06:05 Total Protein 6.5 g/dL (6.4-8.2) 05/28/18 06:05 Albumin 1.7 g/dL (3.4-5.0) L 05/28/18 06:05 Globulin 4.8 g/dL (2.5-4.5) H 05/28/18 06:05 Albumin/Globulin Ratio 0.4 Ratio (1.1-2.1) L 05/28/18 06:05 Vitamin B12 381 pg/mL (193-986) 05/28/18 06:05 Folate 10.6 ng/mL (>8.6) 05/28/18 06:05 Specimen Type Clean catch urine 05/27/18 16:28 Urine Color Yellow (YELLOW) 05/27/18 16:28 Urine Appearance Cloudy (CLEAR) 05/27/18 16:28 Urine pH 6.0 (5.0 - 8.0) 05/27/18 16:28 Ur Specific [place] 1.015 (1.000-1.030) 05/27/18 16:28 Urine Protein 3+ (NEGATIVE) 05/27/18 16:28 Urine Glucose (UA) Negative (NEGATIVE) 05/27/18 16:28 Urine Ketones Negative (NEGATIVE) 05/27/18 16:28 Urine Occult Blood 2+ (NEGATIVE) 05/27/18 16:28 Urine Nitrite Negative (NEGATIVE) 05/27/18 16:28 Urine Bilirubin Negative (NEGATIVE) 05/27/18 16:28 Urine Urobilinogen Normal (NORMAL) 05/27/18 16:28 Ur Leukocyte Esterase 1+ (NEGATIVE) 05/27/18 16:28 Urine RBC 0-2 /HPF (NONE SEEN) 05/27/18 16:28 Urine WBC 3-5 /HPF (NONE SEEN) 05/27/18 16:28 Ur Squamous Epith Cells Rare /HPF (NEGATIVE) 05/27/18 16:28 Amorphous Sediment Trace /HPF (NEGATIVE) 05/27/18 16:28 Urine Bacteria Negative /HPF (NEGATIVE) 05/27/18 16:28 Ur Culture Indicated? No/not indicated 05/27/18 16:28 Stool Description 40cc dark yellow 05/28/18 08:50 Stl Occult Blood (IFOB) Negative (NEGATIVE) 05/28/18 08:50 Stool for White Cells Negative (NEGATIVE) 05/28/18 08:50 Stl C. diff Tox B Gene Negative (NEGATIVE) 05/28/18 08:50 Stl C. diff 027-NAP1-BI Negative (NEGATIVE) 05/28/18 08:50 Other Results Comments: Wide thoracic aorta ~7cm, cardiomegaly, small effusion Rt costal phrenic angle XRAY XRAY Interpreted by: Self
[2018-05-27 18:19] LABS: BASOPHILS % (AUTO) 0.5 % (0.2-1.0); EOSINOPHILS # (AUTO) 0.9 x10^3/uL (0.0-0.2); EOSINOPHILS % (AUTO) 10.5 % (0.9-2.9); HEMATOCRIT 40.5 % (42.0-54.0); HEMOGLOBIN 13.5 g/dL (13.5-18.0); LYMPHOCYTES # (AUTO) 0.7 X10^3/uL (1.3-2.9); LYMPHOCYTES % (AUTO) 7.8 % (21.0-51.0); MEAN CORPUSCULAR HGB CONC 33.3 g/dL (33.0-35.0); MEAN CORPUSCULAR VOLUME 87.2 fL (80.0-100.0); MEAN PLATELET VOLUME 9.5 fL (7.4-11.0); MONOCYTES # (AUTO) 0.8 x10^3/uL (0.3-0.8); MONOCYTES % (AUTO) 9.7 % (0.0-13.0); NEUTROPHILS % (AUTO) 71.5 % (42.0-75.0); PLATELET COUNT 126 X10^3/uL (150.0-450.0); RED BLOOD COUNT 4.65 X10^6/uL (4.7-6.0); RED CELL DISTRIBUTION WIDTH 15.1 % (11.6-16.5)
[2018-05-27 18:24] LABS: ALANINE AMINOTRANSFERASE 29 Units/L (12-78); ALKALINE PHOSPHATASE 53 Units/L (46-116); BLOOD UREA NITROGEN 19 mg/dL (7-18); CARBON DIOXIDE 26.4 mmol/L (21-32); CHLORIDE 106 mmol/L (98-107); COR CA(FOR HYPOALB) 9.6 mg/dL (8.5-10.1); CREATININE 1.62 mg/dL (0.70-1.30); SODIUM 140 mmol/L (136-145); TOTAL PROTEIN 7.5 g/dL (6.4-8.2); eGFR NON BLACK RACES 45 (>60)
[2018-05-27 18:26] LABS: ASPARTATE AMINO TRANSFERASE 25 Units/L (15-37)
[2018-05-27 18:34] LABS: PLATELET MORPHOLOGY COMMENT NORMAL (NORMAL)
[2018-05-27 18:35] LABS: WHITE BLOOD COUNT 8.4 X10^3/uL (3.6-10.0)
[2018-05-27] MEDS: NS 1000 ML 1,000 ML IV SCH (21:56)
--- NOTE | 2018-05-27 22:06 | RAD ---
HISTORY: Generalized weakness Study: Single-view of the chest Comparison: May 21, 2018 Findings: The trachea is midline. The cardiac silhouette is enlarged. The lungs are clear without focal infiltrate or effusion. IMPRESSION: 1. Cardiomegaly. Reported By:
[2018-05-27] MEDS: LIPITOR TAB 40 MG PO SCH (22:16)
[2018-05-27] MEDS: ZyrTEC TAB 10 MG PO SCH (22:17)
[2018-05-27] MEDS: FLAGYL TAB 500 MG PO SCH (22:17)
[2018-05-27] MEDS: COREG TAB 6.25 MG PO SCH (22:17)
[2018-05-28] MEDS: FLAGYL TAB 500 MG PO SCH ×3 (05:04→21:08)
[2018-05-28 06:40] LABS: BASOPHILS % (AUTO) 0.6 % (0.2-1.0); EOSINOPHILS # (AUTO) 0.9 x10^3/uL (0.0-0.2); EOSINOPHILS % (AUTO) 10.7 % (0.9-2.9); HEMOGLOBIN 11.7 g/dL (13.5-18.0); LYMPHOCYTES # (AUTO) 0.9 X10^3/uL (1.3-2.9); LYMPHOCYTES % (AUTO) 10.7 % (21.0-51.0); MEAN CORPUSCULAR HEMOGLOBIN 28.9 pg (27.0-34.0); MEAN CORPUSCULAR HGB CONC 33.3 g/dL (33.0-35.0); MEAN CORPUSCULAR VOLUME 86.6 fL (80.0-100.0); MEAN PLATELET VOLUME 9.3 fL (7.4-11.0); MONOCYTES % (AUTO) 12.5 % (0.0-13.0); NEUTROPHILS # (AUTO) 5.5 x10^3/uL (2.2-4.8); NEUTROPHILS % (AUTO) 65.5 % (42.0-75.0); PLATELET COUNT 164 X10^3/uL (150.0-450.0); RED BLOOD COUNT 4.04 X10^6/uL (4.7-6.0); RED CELL DISTRIBUTION WIDTH 14.9 % (11.6-16.5); WHITE BLOOD COUNT 8.4 X10^3/uL (3.6-10.0)
[2018-05-28 07:00] LABS: ALANINE AMINOTRANSFERASE 24 Units/L (12-78); ALBUMIN 1.7 g/dL (3.4-5.0); ALKALINE PHOSPHATASE 42 Units/L (46-116); ASPARTATE AMINO TRANSFERASE 21 Units/L (15-37); BLOOD UREA NITROGEN 18 mg/dL (7-18); CALCIUM 7.6 mg/dL (8.5-10.1); CARBON DIOXIDE 25.8 mmol/L (21-32); CHLORIDE 107 mmol/L (98-107); COR CA(FOR HYPOALB) 9.4 mg/dL (8.5-10.1); CREATININE 1.67 mg/dL (0.70-1.30); SODIUM 140 mmol/L (136-145); TOTAL PROTEIN 6.5 g/dL (6.4-8.2); eGFR NON BLACK RACES 43 (>60)
[2018-05-28] MEDS: ASPIRIN EC 81 MG PO SCH (09:13)
[2018-05-28] MEDS: COREG TAB 6.25 MG PO SCH ×2 (09:13→21:07)
[2018-05-28] MEDS: BENICAR TAB 40 MG PO SCH (09:13)
[2018-05-28] MEDS: FLOMAX PO SCH (09:13)
[2018-05-28] MEDS: CULTURELLE PRO-WELL PROBIOTIC CAP PO SCH (09:13)
[2018-05-28] MEDS: PLAVIX PO SCH (09:28)
[2018-05-28 10:46] LABS: STOOL FOR WBC NEGATIVE (NEGATIVE)
[2018-05-28] MEDS: NS 1000 ML 1,000 ML IV SCH ×2 (11:05→22:05)
--- NOTE | 2018-05-28 12:18 | DR.H&P ---
H&P - History & Physical for Day of: H&P Date: 05/27/18 - Chief Complaint Chief Complaint: weakness, diarrhea, yung - History of Present Illness History of Present Illness: 73 WM ER ADMISSION AFTER PRESENTING WITH SPOUSE CO SEVERE WEAKNESS, YUNG, "FEELS LIKE HE IS ABOUT TO " PER . PT WAS RECENTLY IN [facility] WITH CDIFF INFECTION AND HAS HAD CONTIUED DIARRHEA, TAKING FLAGYL PO AT HOME. PT HAS CO DECREASED URINE OUTPT PSA ON LAST VISIT 6.62, PT IS ON FLOMAX. PT CO FOOD INTOLERANCE AND WAVES OF NAUSEA, UPPER ABDOMINAL TENDERNESS, RUQ TENDER. PT HAS PMH OF RIGHT NEPHRECTOMY, CAD WITH STENT PLACEMENT ~2 YEARS AGO. PT REPORTS CANNOT WALK FROM ONE ROOM TO NEXT WITH SOB. PT ADMITTED FOR TREATMENT OF ACUTE ILLNESS. - Past Medical History Past Medical History: Coronary Artery Disease, Hypertension, Dyslipidemia, Arthritis - Past Surgical History Surgical History: Angioplasty/Stents Additional Surgical History: RIGHT NEPHRECTOMY - Family History Family Medical History: Diabetes Mellitus, Hypertension - Social History Does patient currently use any type of tobacco product: No Have you used tobacco products in the last 12 months: No Type of Tobacco Use: None Does any household member use tobacco: No Alcohol Use: Rarely Drug Use: Prescription Drugs - Medications Home Medications: ciprofloxacin [From Cipro] Allergy (Intermediate, Verified 05/22/18 19:16) levofloxacin [From Levaquin] Allergy (Verified 05/27/18 15:35) Quinolones Allergy (Verified 05/22/18 19:16) - Review of Systems Constitutional: Chills, Sweats, Weakness Eyes: No Symptoms Reported ENT: No Symptoms Reported Respiratory: SOB with Excertion Cardiovascular: Edema Gastrointestinal: Nausea, Abdominal Pain, Diarrhea Genitourinary: No Symptoms Reported Musculoskeletal: No Symptoms Reported Skin: No Symptoms Reported Neurological: Weakness - Physical Exam Vital Signs: Temperature 99.3 F Pulse Rate [Left Brachial] 78 Pulse Rate 99 Respiratory Rate 20 Blood Pressure [Left Arm] 135/60 Blood Pressure [Right Arm] 122/57 Blood Pressure 175/82 O2 Sat by Pulse Oximetry 95 Oriented: Normal Eyes: Normal Ear: Normal Nose: Normal Throat: Normal Respiratory: RLL Diminished, LLL Diminished Cardiovascular: Normal, Edema : Normal Auscultation: Bowel Sounds: Normal Palpation: Normal Tenderness: RUQ, Epigastric Skin: Decreased Turgur Musculoskeletal: Normal Psychiatric: Normal Speech Pattern: Clear, Appropriate - Assessment/Plan (1) C. difficile colitis Status: Acute Plan: ADMIT, GENTLE IV HYDRATION. STRICT I& OS, STOOL STUDIES. RESUME FLAGYL, CXR AND EKG ON ADMISSION. VERIFY HOME MEDICATION, SUPPLEMENTAL O2 (2) Weakness Status: Acute (3) YUNG (dyspnea on exertion) Status: Acute (4) Lower extremity edema Status: Acute (5) CAD (coronary artery disease) Status: Chronic (6) CHF (congestive heart failure) Qualifiers: Qualified Code(s): I50.9 - Heart failure, unspecified Status: Chronic (7) Hypertension Qualifiers: Hypertension type: essential hypertension Qualified Code(s): I10 - Essential (primary) hypertension Status: Chronic - Allergies Allergies/Adverse Reactions: Allergies Allergy/AdvReac Type Severity Reaction Status Date / Time ciprofloxacin [From Cipro] Allergy Intermediate Verified 05/22/18 19:16 levofloxacin [From Levaquin] Allergy Verified 05/27/18 15:35 Quinolones Allergy Verified 05/22/18 19:16
[2018-05-28] MEDS ORDERED: NORCO 5/325 MG TAB PO ONE (12:24)
--- NOTE | 2018-05-28 12:24 | PCM.PROG ---
Progress Note - Progress Note for Day of Date of Exam: 05/28/18 - Subjective Subjective: 73 WM ADMITTE DON 05/27 WITH CO CONTINUED DIARRHEA, SEVERE WEAKNESS, YUNG AND LOWER EXTREMITY EDEMA. PT CO FOOD INTOLERANCE AND UPPER ABDOMINAL TENDERNESS ON EXAM. PT STATES HE HAS FELT TERRIBLE SINCE D/C HOME FROM HOSPITAL. PT HAD BILATERAL LE PITTING EDEMA WITH PAIN IN RLE. D DIMER, LOWER EXTREMITY DOPPLER, LOVENOX - Past Medical Family Social History Past Med/Fam/Surg Hx: No changes since H&P Allergies: Allergies ciprofloxacin [From Cipro] Allergy (Intermediate, Verified 05/22/18 19:16) levofloxacin [From Levaquin] Allergy (Verified 05/27/18 15:35) Quinolones Allergy (Verified 05/22/18 19:16) - Review of Systems ROS: No change since H&P - Vital Signs and I&O's Vital Signs: Temperature 99.3 F Pulse Rate [Left Brachial] 78 Pulse Rate 99 Respiratory Rate 20 Blood Pressure [Left Arm] 135/60 Blood Pressure [Right Arm] 122/57 Blood Pressure 175/82 O2 Sat by Pulse Oximetry 95 Intake and Output: Intake & Output 05/26/18 05/27/18 05/28/18 05/29/18 11:59 11:59 11:59 11:59 Intake Total 1180 / 1180 Output Total 4 / 4 Balance 1176 / 1176 - Physical Exam Oriented: Normal Eyes: Normal Ear: Normal Nose: Normal Throat: Normal Cardiovascular: Normal, Edema : Normal Auscultation: Bowel Sounds: Increased Tenderness: RUQ, Epigastric Skin: Decreased Turgur Musculoskeletal: Normal Psychiatric: Normal Speech Pattern: Clear, Appropriate - Laboratory and Diagnostics Result Diagrams: 05/28/18 06:05 05/28/18 06:05 Labs: 05/28/18 08:45 Stool - Final Laboratory WBC 8.4 X10^3/uL (3.6-10.0) 05/28/18 06:05 RBC 4.04 X10^6/uL (4.7-6.0) L 05/28/18 06:05 Hgb 11.7 g/dL (13.5-18.0) L 05/28/18 06:05 Hct 35.0 % (42.0-54.0) L 05/28/18 06:05 MCV 86.6 fL (80.0-100.0) 05/28/18 06:05 MCH 28.9 pg (27.0-34.0) 05/28/18 06:05 MCHC 33.3 g/dL (33.0-35.0) 05/28/18 06:05 RDW 14.9 % (11.6-16.5) 05/28/18 06:05 Plt Count 164 X10^3/uL (150.0-450.0) 05/28/18 06:05 Plt Count Comment Adequate (ADEQUATE) 05/27/18 17:58 MPV 9.3 fL (7.4-11.0) 05/28/18 06:05 Neut % (Auto) 65.5 % (42.0-75.0) 05/28/18 06:05 Lymph % (Auto) 10.7 % (21.0-51.0) L 05/28/18 06:05 [place] % (Auto) 12.5 % (0.0-13.0) 05/28/18 06:05 Eos % (Auto) 10.7 % (0.9-2.9) H 05/28/18 06:05 Baso % (Auto) 0.6 % (0.2-1.0) 05/28/18 06:05 Neut # (Auto) 5.5 x10^3/uL (2.2-4.8) H 05/28/18 06:05 Lymph # (Auto) 0.9 X10^3/uL (1.3-2.9) L 05/28/18 06:05 [place] # (Auto) 1.0 x10^3/uL (0.3-0.8) H 05/28/18 06:05 Eos # (Auto) 0.9 x10^3/uL (0.0-0.2) H 05/28/18 06:05 Baso # (Auto) 0.0 X10^3/uL (0.0-0.1) 05/28/18 06:05 Absolute Nucleated RBC 0.0 /100WBC 05/28/18 06:05 Plt Clumps, EDTA Few 05/27/18 17:58 Plt Morphology Comment Normal (NORMAL) 05/27/18 17:58 RBC Morphology Normal (NORMAL) 05/27/18 17:58 Sodium 140 mmol/L (136-145) 05/28/18 06:05 Corrected Sodium TNP 05/28/18 06:05 Potassium 3.9 mmol/L (3.5-5.1) 05/28/18 06:05 Chloride 107 mmol/L (98-107) 05/28/18 06:05 Carbon Dioxide 25.8 mmol/L (21-32) 05/28/18 06:05 BUN 18 mg/dL (7-18) 05/28/18 06:05 Creatinine 1.67 mg/dL (0.70-1.30) H 05/28/18 06:05 Est GFR (MDRD) Af Amer 52 (>60) L 05/28/18 06:05 Est GFR (MDRD) Non-Af 43 (>60) L 05/28/18 06:05 Glucose 109 mg/dL (65-99) H 05/28/18 06:05 POC Glucose (mg/dL) 97 mg/dL (65-99) 05/28/18 12:16 Lactic Acid 1.4 mmol/L (0.4-2.0) 05/27/18 17:58 Calcium 7.6 mg/dL (8.5-10.1) L 05/28/18 06:05 Corrected Calcium 9.4 mg/dL (8.5-10.1) 05/28/18 06:05 Total Bilirubin 0.60 mg/dL (0.2-1.0) 05/28/18 06:05 AST 21 Units/L (15-37) 05/28/18 06:05 ALT 24 Units/L (12-78) 05/28/18 06:05 Alkaline Phosphatase 42 Units/L (46-116) L 05/28/18 06:05 Total Protein 6.5 g/dL (6.4-8.2) 05/28/18 06:05 Albumin 1.7 g/dL (3.4-5.0) L 05/28/18 06:05 Globulin 4.8 g/dL (2.5-4.5) H 05/28/18 06:05 Albumin/Globulin Ratio 0.4 Ratio (1.1-2.1) L 05/28/18 06:05 Specimen Type Clean catch urine 05/27/18 16:28 Urine Color Yellow (YELLOW) 05/27/18 16:28 Urine Appearance Cloudy (CLEAR) 05/27/18 16:28 Urine pH 6.0 (5.0 - 8.0) 05/27/18 16:28 Ur Specific [place] 1.015 (1.000-1.030) 05/27/18 16:28 Urine Protein 3+ (NEGATIVE) 05/27/18 16:28 Urine Glucose (UA) Negative (NEGATIVE) 05/27/18 16:28 Urine Ketones Negative (NEGATIVE) 05/27/18 16:28 Urine Occult Blood 2+ (NEGATIVE) 05/27/18 16:28 Urine Nitrite Negative (NEGATIVE) 05/27/18 16:28 Urine Bilirubin Negative (NEGATIVE) 05/27/18 16:28 Urine Urobilinogen Normal (NORMAL) 05/27/18 16:28 Ur Leukocyte Esterase 1+ (NEGATIVE) 05/27/18 16:28 Urine RBC 0-2 /HPF (NONE SEEN) 05/27/18 16:28 Urine WBC 3-5 /HPF (NONE SEEN) 05/27/18 16:28 Ur Squamous Epith Cells Rare /HPF (NEGATIVE) 05/27/18 16:28 Amorphous Sediment Trace /HPF (NEGATIVE) 05/27/18 16:28 Urine Bacteria Negative /HPF (NEGATIVE) 05/27/18 16:28 Ur Culture Indicated? No/not indicated 05/27/18 16:28 Stool Description 40cc dark yellow 05/28/18 08:50 Stl Occult Blood (IFOB) Negative (NEGATIVE) 05/28/18 08:50 Stool for White Cells Negative (NEGATIVE) 05/28/18 08:50 Stl C. diff Tox B Gene Negative (NEGATIVE) 05/28/18 08:50 Stl C. diff 027-NAP1-BI Negative (NEGATIVE) 05/28/18 08:50 - Plan (1) C. difficile colitis Status: Acute Plan: GENTLE IV HYDRATION. STRICT I& OS, STOOL STUDIES. RESUME FLAGYL, CXR AND EKG ON ADMISSION. CARDIAC ENZYMES. REVIEWED PREVIOUS LABS AND RAD TESTING. VERIFY HOME MEDICATION, SUPPLEMENTAL O2. VENOUS DOPPLER (2) Weakness Status: Acute (3) YUNG (dyspnea on exertion) Status: Acute (4) Lower extremity edema Status: Acute (5) CAD (coronary artery disease) Status: Chronic (6) CHF (congestive heart failure) Status: Chronic Qualifiers: Qualified Code(s): I50.9 - Heart failure, unspecified (7) Hypertension Status: Chronic Qualifiers: Hypertension type: essential hypertension Qualified Code(s): I10 - Essential (primary) hypertension
[2018-05-28 13:25] LABS: CREATINE KINASE 17 Units/L (39-308); CREATINE KINASE MB < 1.0 ng/mL (0-4.0); TROPONIN I 0.02 ng/mL (0-1.5)
[2018-05-28] MEDS: LOVENOX INJ 30 MG SYR SC SCH (13:25)
[2018-05-28 13:50] LABS: IRON 22 ug/dL (50-175)
[2018-05-28 14:12] LABS: CKMB % 5.9 % (<4)
[2018-05-28 15:34] VITALS: BMI 31.2
[2018-05-28] MEDS: LIPITOR TAB 40 MG PO SCH (21:07)
[2018-05-28] MEDS: ZyrTEC TAB 10 MG PO SCH (21:08)
[2018-05-28] MEDS: ZOFRAN TAB 4 MG PO PRN (23:17)
[2018-05-28] MEDS: TYLENOL 325 MG TAB PO PRN (23:48)
--- NOTE | 2018-05-29 00:17 | VAS ---
HISTORY: Right leg edema Study: Right lower extremity venous Doppler ultrasound Comparison: None TECHNIQUE: Multiple harry scale and color flow Doppler images of the deep venous system were obtained of the right lower extremity. FINDINGS: The deep venous system of the right lower extremity was evaluated from the level of the common femoral vein through the popliteal vein. Normal color flow and augmentation can be observed. In addition, normal compression is seen throughout the deep venous system. IMPRESSION: 1. Negative for DVT. Reported By:
[2018-05-29] MEDS: FLAGYL TAB 500 MG PO SCH ×4 (05:26→22:30)
[2018-05-29 06:45] LABS: BASOPHILS # (AUTO) 0.1 X10^3/uL (0.0-0.1); EOSINOPHILS # (AUTO) 0.7 x10^3/uL (0.0-0.2); EOSINOPHILS % (AUTO) 9.5 % (0.9-2.9); HEMATOCRIT 36.6 % (42.0-54.0); HEMOGLOBIN 12.4 g/dL (13.5-18.0); LYMPHOCYTES # (AUTO) 0.9 X10^3/uL (1.3-2.9); LYMPHOCYTES % (AUTO) 11.7 % (21.0-51.0); MEAN CORPUSCULAR HEMOGLOBIN 29.4 pg (27.0-34.0); MEAN CORPUSCULAR HGB CONC 33.9 g/dL (33.0-35.0); MEAN CORPUSCULAR VOLUME 86.9 fL (80.0-100.0); MEAN PLATELET VOLUME 7.8 fL (7.4-11.0); MONOCYTES # (AUTO) 0.8 x10^3/uL (0.3-0.8); MONOCYTES % (AUTO) 10.3 % (0.0-13.0); NEUTROPHILS % (AUTO) 67.5 % (42.0-75.0); RED BLOOD COUNT 4.21 X10^6/uL (4.7-6.0)
[2018-05-29 06:51] LABS: ALANINE AMINOTRANSFERASE 20 Units/L (12-78); ALBUMIN 1.7 g/dL (3.4-5.0); ALKALINE PHOSPHATASE 40 Units/L (46-116); ASPARTATE AMINO TRANSFERASE 24 Units/L (15-37); BLOOD UREA NITROGEN 17 mg/dL (7-18); CALCIUM 7.7 mg/dL (8.5-10.1); CARBON DIOXIDE 24.1 mmol/L (21-32); CHLORIDE 107 mmol/L (98-107); COR CA(FOR HYPOALB) 9.5 mg/dL (8.5-10.1); CREATININE 1.68 mg/dL (0.70-1.30); SODIUM 140 mmol/L (136-145); TOTAL PROTEIN 6.9 g/dL (6.4-8.2); eGFR NON BLACK RACES 43 (>60)
[2018-05-29 07:27] LABS: PLATELET COUNT 95 X10^3/uL (150.0-450.0)
[2018-05-29 07:28] LABS: PLATELET MORPHOLOGY COMMENT NORMAL (NORMAL); WHITE BLOOD COUNT 7.5 X10^3/uL (3.6-10.0)
[2018-05-29] MEDS: COREG TAB 6.25 MG PO SCH ×2 (08:47→20:34)
[2018-05-29] MEDS: FLOMAX PO SCH (08:48)
[2018-05-29] MEDS: ASPIRIN EC 81 MG PO SCH (08:48)
[2018-05-29] MEDS: CULTURELLE PRO-WELL PROBIOTIC CAP PO SCH (08:48)
[2018-05-29] MEDS: PLAVIX PO SCH (08:48)
[2018-05-29] MEDS: BENICAR TAB 40 MG PO SCH (08:49)
[2018-05-29] MEDS: LOVENOX INJ 30 MG SYR SC SCH (08:50)
[2018-05-29] MEDS ORDERED: VSL#3 PO SCH (10:45)
[2018-05-29] MEDS: NS 1000 ML 1,000 ML IV SCH ×2 (13:38→20:45)
--- NOTE | 2018-05-29 16:40 | US ---
Exam: Gallbladder ultrasound History: 73-year-old male with right upper quadrant pain. Comparison: None Findings: Fatty changes are seen in the liver. However there is no hepatomegaly or focal intrahepatic abnormality seen. Portal vein is patent with normal hepatopetal flow. Gallbladder is normal appearing with no cholelithiasis, gallbladder wall thickening, or localized tenderness. Common bile duct measures 2 mm in diameter. Patient is status post right nephrectomy. IVC is patent. Pancreas is not well seen because of overlying bowel gas. Impression: 1. No cholelithiasis. 2. Status post right nephrectomy. 3. Pancreas not well seen because of overlying bowel gas. 4. Fatty changes are present in the Reported By:
[2018-05-29] MEDS: LIPITOR TAB 40 MG PO SCH (20:34)
[2018-05-29] MEDS: ZyrTEC TAB 10 MG PO SCH (20:34)
[2018-05-29] MEDS: TYLENOL 325 MG TAB PO PRN (20:35)
[2018-05-30] MEDS: NS 1000 ML 1,000 ML IV SCH ×2 (01:53→04:27)
[2018-05-30] MEDS: FLAGYL TAB 500 MG PO SCH (05:28)
[2018-05-30 06:48] LABS: ALANINE AMINOTRANSFERASE 22 Units/L (12-78); ALBUMIN 1.6 g/dL (3.4-5.0); ALKALINE PHOSPHATASE 40 Units/L (46-116); ASPARTATE AMINO TRANSFERASE 22 Units/L (15-37); BLOOD UREA NITROGEN 18 mg/dL (7-18); CALCIUM 7.4 mg/dL (8.5-10.1); CARBON DIOXIDE 26.4 mmol/L (21-32); CHLORIDE 108 mmol/L (98-107); COR CA(FOR HYPOALB) 9.3 mg/dL (8.5-10.1); CREATININE 1.77 mg/dL (0.70-1.30); SODIUM 140 mmol/L (136-145); eGFR NON BLACK RACES 41 (>60)
[2018-05-30 07:04] LABS: BASOPHILS # (AUTO) 0.1 X10^3/uL (0.0-0.1); BASOPHILS % (AUTO) 0.9 % (0.2-1.0); EOSINOPHILS # (AUTO) 0.9 x10^3/uL (0.0-0.2); EOSINOPHILS % (AUTO) 11.2 % (0.9-2.9); HEMATOCRIT 35.5 % (42.0-54.0); LYMPHOCYTES # (AUTO) 0.9 X10^3/uL (1.3-2.9); LYMPHOCYTES % (AUTO) 11.1 % (21.0-51.0); MEAN CORPUSCULAR HEMOGLOBIN 29.6 pg (27.0-34.0); MEAN CORPUSCULAR HGB CONC 33.8 g/dL (33.0-35.0); MEAN CORPUSCULAR VOLUME 87.5 fL (80.0-100.0); MEAN PLATELET VOLUME 8.4 fL (7.4-11.0); MONOCYTES # (AUTO) 0.7 x10^3/uL (0.3-0.8); MONOCYTES % (AUTO) 8.3 % (0.0-13.0); NEUTROPHILS # (AUTO) 5.5 x10^3/uL (2.2-4.8); NEUTROPHILS % (AUTO) 68.5 % (42.0-75.0); PLATELET COUNT 108 X10^3/uL (150.0-450.0); RED BLOOD COUNT 4.06 X10^6/uL (4.7-6.0)
[2018-05-30] MEDS: ZOFRAN TAB 4 MG PO PRN (07:24)
[2018-05-30 08:53] LABS: PLATELET MORPHOLOGY COMMENT NORMAL (NORMAL)
[2018-05-30] MEDS: ASPIRIN EC 81 MG PO SCH (08:56)
[2018-05-30] MEDS: FLOMAX PO SCH (08:56)
[2018-05-30] MEDS: CULTURELLE PRO-WELL PROBIOTIC CAP PO SCH (08:56)
[2018-05-30] MEDS: PLAVIX PO SCH (08:56)
[2018-05-30] MEDS: COREG TAB 6.25 MG PO SCH (08:56)
[2018-05-30] MEDS: BENICAR TAB 40 MG PO SCH (08:56)
[2018-05-30] MEDS: LOVENOX INJ 30 MG SYR SC SCH (09:00)
[2018-05-30 09:30] VITALS: BP 171/72
--- NOTE | 2018-05-30 10:29 | PCM.PROG ---
Progress Note - Progress Note for Day of Date of Exam: 05/29/18 - Subjective Subjective: WAS ADMITTED DUE TO SEVERE WEAKNESS, DYSPNEA ON EXERTION, AND DEHYDRATION. HE WAS RECENTLY HOSPITALIZED WITH C-DIFF. PATIENT REPORTS THAT HE CONTINUES WITH DIARRHEA AT HOME AND ALSO HAS DECREASED URINE OUTPUT. HE REPORTS INCREASED NAUSEA AFTER EATING AND RUQ TENDERNESS. TODAY, HE IS ALERT AND ORIENTED, LYING IN BED ON MORNING ROUNDS. HE CONTINUES WITH COMPLAINTS OF ABDOMINAL PAIN, WEAKNESS, AND SHORTNESS OF BREATH. ON EXAMINATION, HEART IS REGULAR IN RATE AND RHYTHM. BILATERAL LUNGS ARE NOTED WITH DIMINISHED LUNG SOUNDS THROUGHOUT. ABDOMEN IS ROUND, SOFT, AND NOTED WITH DIFFUSE TENDERNESS. HYPERACTIVE BOWEL SOUNDS NOTED IN ALL QUADRANTS. HE IS NOTED WITH NON-PITTING EDEMA TO THE RIGHT FOOT. HIS VITALS THIS MORNING ARE 97.9-60-20-98%-179/76. LABS WERE OBTAINED. ABNORMAL LAB VALUES INCLUDE THE FOLLOWING: RBC 4.06, HGB 12.0, HCT 35.5, PLT COUNT 108, CHLORIDE 108, CREATININE 1.77, GLUCOSE 103, CALCIUM 7.4, ALK PHOS 40, ALBUMIN 1.6, GLOBULIN 5.4. TODAY, WE PLAN TO OBTAIN A GALLBLADDER ULTRASOUND. HE IS CURRENTLY RECEIVING IV HYDRATION AND HOME MEDICATIONS WERE RESUMED. OTHERWISE, WE PLAN TO FOLLOW UP WITH AM LABS AND CONTINUE TO MONITOR. - Past Medical Family Social History Past Med/Fam/Surg Hx: No changes since H&P Allergies: Allergies ciprofloxacin [From Cipro] Allergy (Intermediate, Verified 05/22/18 19:16) levofloxacin [From Levaquin] Allergy (Verified 05/27/18 15:35) Quinolones Allergy (Verified 05/22/18 19:16) - Review of Systems ROS: No change since H&P - Vital Signs and I&O's Vital Signs: Temperature 99.3 F Pulse Rate [Left Brachial] 77 Pulse Rate 99 Respiratory Rate 20 Blood Pressure [Left Arm] 135/60 Blood Pressure [Right Arm] 171/72 Blood Pressure 175/82 O2 Sat by Pulse Oximetry 99 Intake and Output: Intake & Output 05/27/18 05/28/18 05/29/18 05/30/18 11:59 11:59 11:59 11:59 Intake Total 1180 / 1180 2240 / 2240 1580 / 1580 Output Total 350 / 350 Balance 1176 / 1176 1890 / 1890 1580 / 1580 - Physical Exam Oriented: Normal Eyes: Normal Ear: Normal Nose: Normal Throat: Normal Cardiovascular: Normal, Edema : Normal Auscultation: Bowel Sounds: Increased Tenderness: RUQ, Epigastric Skin: Decreased Turgur Musculoskeletal: Normal Psychiatric: Normal Speech Pattern: Clear, Appropriate - Laboratory and Diagnostics Result Diagrams: 05/30/18 06:05 05/30/18 06:05 Labs: 05/28/18 08:45 Stool Stool Culture - Final 05/28/18 08:45 Stool - Final 05/27/18 17:58 Blood Blood Culture - Preliminary Laboratory WBC 8.0 X10^3/uL (3.6-10.0) 05/30/18 06:05 RBC 4.06 X10^6/uL (4.7-6.0) L 05/30/18 06:05 Hgb 12.0 g/dL (13.5-18.0) L 05/30/18 06:05 Hct 35.5 % (42.0-54.0) L 05/30/18 06:05 MCV 87.5 fL (80.0-100.0) 05/30/18 06:05 MCH 29.6 pg (27.0-34.0) 05/30/18 06:05 MCHC 33.8 g/dL (33.0-35.0) 05/30/18 06:05 RDW 15.0 % (11.6-16.5) 05/30/18 06:05 Plt Count 108 X10^3/uL (150.0-450.0) L 05/30/18 06:05 Plt Count Comment Decreased (ADEQUATE) 05/30/18 06:05 MPV 8.4 fL (7.4-11.0) 05/30/18 06:05 Neut % (Auto) 68.5 % (42.0-75.0) 05/30/18 06:05 Lymph % (Auto) 11.1 % (21.0-51.0) L 05/30/18 06:05 [place] % (Auto) 8.3 % (0.0-13.0) 05/30/18 06:05 Eos % (Auto) 11.2 % (0.9-2.9) H 05/30/18 06:05 Baso % (Auto) 0.9 % (0.2-1.0) 05/30/18 06:05 Neut # (Auto) 5.5 x10^3/uL (2.2-4.8) H 05/30/18 06:05 Lymph # (Auto) 0.9 X10^3/uL (1.3-2.9) L 05/30/18 06:05 [place] # (Auto) 0.7 x10^3/uL (0.3-0.8) 05/30/18 06:05 Eos # (Auto) 0.9 x10^3/uL (0.0-0.2) H 05/30/18 06:05 Baso # (Auto) 0.1 X10^3/uL (0.0-0.1) 05/30/18 06:05 Absolute Nucleated RBC 0.1 /100WBC 05/30/18 06:05 Plt Clumps, EDTA Rare 05/30/18 06:05 Plt Morphology Comment Normal (NORMAL) 05/30/18 06:05 RBC Morphology Normal (NORMAL) 05/30/18 06:05 D-Dimer 2060 ng/mL (0-400) H* 05/28/18 12:45 Sodium 140 mmol/L (136-145) 05/30/18 06:05 Corrected Sodium TNP 05/30/18 06:05 Potassium 4.3 mmol/L (3.5-5.1) 05/30/18 06:05 Chloride 108 mmol/L (98-107) H 05/30/18 06:05 Carbon Dioxide 26.4 mmol/L (21-32) 05/30/18 06:05 BUN 18 mg/dL (7-18) 05/30/18 06:05 Creatinine 1.77 mg/dL (0.70-1.30) H 05/30/18 06:05 Est GFR (MDRD) Af Amer 49 (>60) L 05/30/18 06:05 Est GFR (MDRD) Non-Af 41 (>60) L 05/30/18 06:05 Glucose 103 mg/dL (65-99) H 05/30/18 06:05 POC Glucose (mg/dL) 106 mg/dL (65-99) H 05/29/18 05:27 Lactic Acid 1.4 mmol/L (0.4-2.0) 05/27/18 17:58 Calcium 7.4 mg/dL (8.5-10.1) L 05/30/18 06:05 Corrected Calcium 9.3 mg/dL (8.5-10.1) 05/30/18 06:05 Iron 22 ug/dL (50-175) L 05/28/18 06:05 Transferrin 75 mg/dL (202-364) L 05/28/18 06:05 Ferritin 639 ng/mL (26-388) H 05/28/18 06:05 Total Bilirubin 0.50 mg/dL (0.2-1.0) 05/30/18 06:05 AST 22 Units/L (15-37) 05/30/18 06:05 ALT 22 Units/L (12-78) 05/30/18 06:05 Alkaline Phosphatase 40 Units/L (46-116) L 05/30/18 06:05 Creatine Kinase 17 Units/L (39-308) L 05/28/18 06:05 CK-MB (CK-2) < 1.0 ng/mL (0-4.0) 05/28/18 06:05 CK/CKMB % Calc 5.9 % (<4) 05/28/18 06:05 Troponin I 0.02 ng/mL (0-1.5) 05/28/18 06:05 Total Protein 7.0 g/dL (6.4-8.2) 05/30/18 06:05 Albumin 1.6 g/dL (3.4-5.0) L 05/30/18 06:05 Globulin 5.4 g/dL (2.5-4.5) H 05/30/18 06:05 Albumin/Globulin Ratio 0.3 Ratio (1.1-2.1) L 05/30/18 06:05 Vitamin B12 381 pg/mL (193-986) 05/28/18 06:05 Folate 10.6 ng/mL (>8.6) 05/28/18 06:05 Specimen Type Clean catch urine 05/27/18 16:28 Urine Color Yellow (YELLOW) 05/27/18 16:28 Urine Appearance Cloudy (CLEAR) 05/27/18 16:28 Urine pH 6.0 (5.0 - 8.0) 05/27/18 16:28 Ur Specific [place] 1.015 (1.000-1.030) 05/27/18 16:28 Urine Protein 3+ (NEGATIVE) 05/27/18 16:28 Urine Glucose (UA) Negative (NEGATIVE) 05/27/18 16:28 Urine Ketones Negative (NEGATIVE) 05/27/18 16:28 Urine Occult Blood 2+ (NEGATIVE) 05/27/18 16:28 Urine Nitrite Negative (NEGATIVE) 05/27/18 16:28 Urine Bilirubin Negative (NEGATIVE) 05/27/18 16:28 Urine Urobilinogen Normal (NORMAL) 05/27/18 16:28 Ur Leukocyte Esterase 1+ (NEGATIVE) 05/27/18 16:28 Urine RBC 0-2 /HPF (NONE SEEN) 05/27/18 16:28 Urine WBC 3-5 /HPF (NONE SEEN) 05/27/18 16:28 Ur Squamous Epith Cells Rare /HPF (NEGATIVE) 05/27/18 16:28 Amorphous Sediment Trace /HPF (NEGATIVE) 05/27/18 16:28 Urine Bacteria Negative /HPF (NEGATIVE) 05/27/18 16:28 Ur Culture Indicated? No/not indicated 05/27/18 16:28 Stool Description 40cc dark yellow 05/28/18 08:50 Stl Occult Blood (IFOB) Negative (NEGATIVE) 05/28/18 08:50 Stool for White Cells Negative (NEGATIVE) 05/28/18 08:50 Stl C. diff Tox B Gene Negative (NEGATIVE) 05/28/18 08:50 Stl C. diff [id number] Negative (NEGATIVE) 05/28/18 08:50
== END 2018-05-30 11:29 | disposition home or self-care (01) ==
LOC: MED/SURG 15:27 → ER 15:27 → MED/SURG 21:48
PROVIDERS: ADMIT Internal Medicine; ATTEND Internal Medicine
DX: I11.0 Hypertensive heart disease with heart failure; R10.84 Generalized abdominal pain; E86.0 Dehydration; R60.0 Localized edema; R06.02 Shortness of breath; R19.7 Diarrhea, unspecified; I50.9 Heart failure, unspecified; R53.1 Weakness; Z90.5 Acquired absence of kidney; A04.72 Enterocolitis due to Clostridium difficile, not specified as recurrent; K90.49 Malabsorption due to intolerance, not elsewhere classified; E78.2 Mixed hyperlipidemia; R11.2 Nausea with vomiting, unspecified; I25.10 Atherosclerotic heart disease of native coronary artery without angina pectoris
CPT/HCPCS: 36415; 71010; 71045; 76705; 80053; 81001; 82270; 82550; 82553; 82607; 82728; 82746; 83540; 83605; 83630; 84466; 84484; 85025; 85378; 87040; 87045; 87427; 87449; 87493; 87899; 93005; 93971; 94760; 96365; 96367; 96372; 96374; 99284; A4216; A4222; G0378; J1650; J3490; J7030; S0119; S0181